=== PATIENT | female | born 1950 | race Caucasian/White ===

== ENCOUNTER 2020-02-07 14:25 | Inpatient (IN) | payer MEDICARE ==
[2020-02-07] MEDS ORDERED: DEXAMETHASONE SOD PHOSPHATE 4 MG/ML 1 ML VIAL IV STA (14:42)
[2020-02-07] MEDS ORDERED: SODIUM CHLORIDE 0.9% 1,000 ML IV ONE (14:43)
--- NOTE | 2020-02-07 14:59 | ED ---
Chest Pain HPI - General Chief Complaint: Chest Pain Stated Complaint: Covid+ SOB/chest pain Time Seen by Provider: 02/07/20 14:31 Source: EMS Mode of arrival: EMS Limitations: no limitations - History of Present Illness Initial Comments: 69-year-old female history of hypertension presenting today for chief complaint of positive Covid with increasing shortness of breath and occasional chest pain. Patient states that she has been diagnosed with Covid since Wednesday. Patient states that she has had increasing shortness of breath and occasional chest pain she states they are sharp over the anterior chest. She denies pressure jaw pain and arm pain nausea vomiting abdominal pain. Patient does endorse diarrhea. Patient states she has all over body aches hasn't had fevers she denies neck stiffness, visual changes. Patient denies leg swelling, hemoptysis. Patient denies current chest pain. patient states she felt so short of breath today that her PCP told her to call EMS and bring her family to the ER> Patient has no additional complaints, she does appear mildly tachypneic on arrival - Related Data Home Medications Medication Instructions Recorded Confirmed Albuterol Sulfate [Proair Hfa] 1 - 2 puff INHALATION RT-Q6H PRN 02/07/20 02/07/20 Ezetimibe [Zetia] 10 mg PO Q3D 02/07/20 02/07/20 Losartan Potassium 100 mg PO HS 02/07/20 02/07/20 Allergies Allergy/AdvReac Type Severity Reaction Status Date / Time diltiazem AdvReac hand and Verified 02/07/20 15:04 feet swelling Review of Systems ROS Statement: Those systems with pertinent positive or pertinent negative responses have been documented in the HPI. ROS Other: All systems not noted in ROS Statement are negative. EKG Findings - EKG Comments: EKG Findings:: Ventricular rate 99 bpm, HI interval 138 ms, QRS samaritan 82 ms, QT/QTC 364/467 ms. This is normal sinus. With some nonspecific ST changes in the lateral leads. Past Medical History Past Medical History: Hypertension Past Surgical History: No Surgical Hx Reported Past Psychological History: No Psychological Hx Reported Smoking Status: Never smoker Past Alcohol Use History: None Reported Past Drug Use History: None Reported General Exam - General Exam Comments Initial Comments: General: The patient is awake and alert Eye: Pupils are equal, round and reactive to light, extra-ocular movements are intact. No nystagmus. There is normal conjunctiva bilaterally. No signs of icterus. Ears, nose, mouth and throat: There are moist mucous membranes and no oral lesions. nasal congestion Neck: The neck is supple, there is no tenderness or JVD. Cardiovascular: There is a regular rate and rhythm. No murmur, rub or gallop is appreciated. Respiratoryrespirations are mildly -labored, breath sounds are equal. No wheezes, stridor. Rhonchi present. dry cough Gastrointestinal: Soft, non-distended, non-tender abdomen without masses or organomegaly noted. There is no rebound or guarding present. Musculoskeletal: Normal ROM, no tenderness. Strength 5/5. Sensation intact. Pulses equal bilaterally 2+. Neurological: A&O x 3. CN II-XII intact, There are no obvious motor or sensory deficits. Coordination appears grossly intact. Speech is normal. Skin: Skin is warm and dry and no rashes or lesions are noted. No calf pain no lower extremity edema Psychiatric: Cooperative, appropriate mood & affect, normal judgment. Limitations: no limitations Course Vital Signs 02/07/20 02/07/20 14:28 15:40 Temperature 100.5 F H Pulse Rate 103 H Respiratory 24 26 H Rate Blood Pressure 175/93 O2 Sat by Pulse 91 L Oximetry Chest Pain MDM - MDM 69-year-old P male presenting for shortness of breath chest pain positive covert. Patient states she has had worsening shortness of breath. She troponin negative. Dimer mildly elevated patient will be treated with Lovenox as she has increased risk of thrombotic events with covid 19 infection. Patient CXR concern for possible Covid pneumonia. As patient is mildly hypoxic and slightly tachypneic she will be admitted for continuous pulse oximetry monitoring her respiratory status, serial troponins. Patient agreeable to care plan and admission. Dr. gaspar agreeable to care plan--admission accepted by Dr. Vasquez Disposition Clinical Impression: COVID-19, Chest pain, Fever, Hypoxia Disposition: ADMITTED IP TO THIS HOSP Condition: Stable Additional Instructions: . Is patient prescribed a controlled substance at d/c from ED?: No Referrals: Mariya Enrique MD [Primary Care Provider] - 1-2 days Time of Disposition: 16:35
--- NOTE | 2020-02-07 15:06 | XR ---
EXAMINATION TYPE: XR chest 1V portable DATE OF EXAM: 02/07/2020 COMPARISON: NONE HISTORY: Shortness of breath and chest pain, Covid positive TECHNIQUE: Single frontal view of the chest is obtained. FINDINGS: Lung volumes are low. Patchy bilateral density is present within the lungs. There is no ev ident pneumothorax or pleural effusion. Heart size within normal limits accounting for technique. Aor ta is dense. IMPRESSION: Correlate for pneumonia versus atelectasis. Expiratory exam, consider follow-up PA and l ateral chest x-ray when stable. Right hemidiaphragm is elevated.
[2020-02-07 15:21] LABS: Albumin 4.2 g/dL (3.5-5.0); Calcium 9.1 mg/dL (8.4-10.2); Magnesium 2.1 mg/dL (1.6-2.3); Potassium 4.1 mmol/L (3.5-5.1); Total Bilirubin 1.3 mg/dL (0.2-1.3); Total Protein 7.5 g/dL (6.3-8.2)
[2020-02-07 15:25] LABS: INR 0.9 (<1.2); Partial Thromboplastin Time 24.3 sec (22.0-30.0); Prothrombin Time 9.9 sec (9.0-12.0)
[2020-02-07] MEDS: SODIUM CHLORIDE 0.9% 1,000 ML IV SCH (15:27)
[2020-02-07 15:33] LABS: Basophils # (A) 0.1 k/uL (0-0.2); Basophils % (A) 1 %; Eosinophils % (A) 0 %; HCT 41.4 % (34.0-46.0); HGB 14.2 gm/dL (11.4-16.0); Lymphocytes # (A) 1.3 k/uL (1.0-4.8); Lymphocytes % (A) 11 %; MCH 28.1 pg (25.0-35.0); MCHC 34.2 g/dL (31.0-37.0); Mean Platelet Volume 7.8; Monocytes # (A) 0.7 k/uL (0-1.0); Monocytes % (A) 6 %; Neutrophils # (A) 9.4 k/uL (1.3-7.7); Neutrophils % (A) 80 %; Platelet Count 267 k/uL (150-450); RBC 5.04 m/uL (3.80-5.40); RDW 12.8 % (11.5-15.5); WBC 11.7 k/uL (3.8-10.6)
[2020-02-07 15:37] LABS: D-Dimer 0.87 mg/L FEU (<0.60); MCV 82.2 fL (80.0-100.0)
[2020-02-07 15:52] LABS: C Reactive Protein 187.4 mg/L (<10.0)
[2020-02-07] MEDS ORDERED: ENOXAPARIN 80 MG/0.8 ML SYRINGE SQ STA (16:02)
[2020-02-07] MEDS ORDERED: ENOXAPARIN 60 MG/0.6 ML SYRINGE SQ STA (16:04)
[2020-02-07] MEDS ORDERED: NALOXONE 0.4 MG/ML 1 ML VIAL IV PRN (16:33)
[2020-02-07] MEDS ORDERED: Potassium Replacement Protocol 1 EACH MISC MISCELLANE PRN (19:28)
[2020-02-07] MEDS ORDERED: Magnesium Replacement Protocol 1 EACH MISC MISCELLANE PRN (19:28)
[2020-02-07] MEDS: FAMOTIDINE 20 MG TAB PO SCH (20:43)
[2020-02-07] MEDS: CHOLECALCIFEROL 1,000 UNIT TAB PO SCH (20:44)
[2020-02-07] MEDS ORDERED: LOSARTAN 50 MG TAB PO SCH (21:00)
[2020-02-07] MEDS: ALBUTEROL HFA INHALER INHALATION SCH (21:22)
--- NOTE | 2020-02-07 21:46 | HP ---
HISTORY AND PHYSICAL DATE OF SERVICE: 02/07/2020 CHIEF COMPLAINTS: Shortness of breath, cough and sputum. HISTORY OF PRESENT ILLNESS: This 69-year-old woman with a past medical history of hypertension, asthma being followed by Dr. Mariya Enrique in the outpatient setting, not feeling well over the past several days. Patient's has got dementia and multiple other medical problems has also been sick. The patient was having increased shortness of breath. The patient diagnosed with Covid since Wednesday, but the patient was significantly hypoxic and the patient came to [facility] and admitted for further evaluation and treatment. The D-dimer is elevated at 0.87. CT angio chest was recommended. Patient also had elevated inflammatory markers and 187. The chest x-ray done in the ER which was reviewed personally by me showed bilateral interstitial lesions suggestive of COVID-19 pneumonia. The patient admitted for further evaluation and treatment. There is no history any headache, loss of consciousness, seizures at this time. PAST MEDICAL HISTORY: History of hypertension, history of asthma. HOME MEDICATIONS: Albuterol, losartan, and Zetia. ALLERGIES: DILTIAZEM. FAMILY HISTORY: No history of heart disease or strokes in the family. SOCIAL HISTORY: No history of smoking. No history of alcohol. REVIEW OF SYSTEMS: ENT: No diminished vision. No diminished hearing. CARDIOVASCULAR: No angina or palpitations. RESPIRATION as mentioned earlier. GI: As mentioned. : As mentioned earlier. NERVOUS SYSTEM: No numbness, weakness ALLERGY/IMMUNOLOGY: No asthma or hayfever. MUSCULOSKELETAL as mentioned earlier. HEMATOLOGY/ONCOLOGY: No history of anemia. ENDOCRINE: No history of diabetes or hypothyroidism. CONSTITUTIONAL: As mentioned earlier. DERMATOLOGY: Negative. RHEUMATOLOGY negative. PSYCHIATRY as mentioned earlier. PHYSICAL EXAM: Patient is alert, oriented x 3. The pulse is 103. Blood pressure 175/93, respiration 24. Temperature is 100.5, pulse ox 91% on 2 L. HEENT: Conjunctivae normal. NECK: No JVD. CARDIOVASCULAR: S1, S2 muffled. RESPIRATIONS: Breath sounds diminished in the bases. A few scattered rhonchi. ABDOMEN: Soft, nontender. LEGS are no edema. No swelling. NERVOUS SYSTEM: Higher functions as mentioned. Moves all four limbs. No focal motor deficits. SKIN: No ulcer, no rashes and no bleeding. JOINTS: No active deforming arthropathy. LABS: WBC 7.2, hemoglobin 14.2. D-dimer is 0.87, and AST is 54, ALT is 39 and LDH is 1051. C-reactive protein is 187. ASSESSMENT: 1. Acute Covid-19 infection with bilateral interstitial pneumonia with acute hypoxic respiratory failure. 2. Elevated D-dimer. 3. Hypertension. 4. History of bronchial asthma. 5. Hyperlipidemia. 6. Increased AST, ALT. 7. Increased LDH. 8. Increased CRP. 9. Obesity with body mass of 30.7. 10.FULL CODE. RECOMMENDATIONS AND DISCUSSION: In this 69-year-old woman who presented with multiple complex medical issues. We will monitor the patient closely. Continue the current medications, management and symptomatic treatment. Otherwise bronchodilators. Ensure oxygenation. We will start the Lovenox, Dexamethasone and zinc. Also recommend consult Dr. Ortega for consideration of Remdesivir because of the hypoxia, early presentation, CT angio of the chest also will be ordered to rule out the possibility of acute pulmonary embolism as well as bilateral pneumonia. Prognosis extremely guarded because of multiple complex medical issues. Discussed with the patient who understands and agrees. A copy of dictation being forwarded to Dr. Mariya Enrique, who is the primary physician. MMODL / IJN: [id number] / MTDD
[2020-02-08] MEDS: ALBUTEROL HFA INHALER INHALATION SCH ×5 (00:34→20:25)
[2020-02-08 01:40] LABS: Ferritin 732.9 ng/mL (10.0-291.0)
[2020-02-08] MEDS: SODIUM CHLORIDE 0.9% 1,000 ML IV SCH ×3 (03:54→15:00)
[2020-02-08] MEDS: FAMOTIDINE 20 MG TAB PO SCH ×2 (09:47→21:15)
[2020-02-08] MEDS: ASCORBIC ACID 500 MG TAB PO SCH (09:47)
[2020-02-08] MEDS: CHOLECALCIFEROL 1,000 UNIT TAB PO SCH (09:47)
[2020-02-08] MEDS: ENOXAPARIN 40 MG/0.4 ML SYRINGE SQ SCH (09:48)
[2020-02-08] MEDS: ACETAMINOPHEN TAB 325 MG TAB PO PRN (09:48)
[2020-02-08] MEDS: dexAMETHasone 2 MG TAB PO SCH (09:48)
[2020-02-08 11:31] LABS: Basophils % (A) 0 %; Eosinophils % (A) 0 %; HCT 37.5 % (34.0-46.0); HGB 12.7 gm/dL (11.4-16.0); Lymphocytes # (A) 1.1 k/uL (1.0-4.8); Lymphocytes % (A) 11 %; MCH 27.9 pg (25.0-35.0); MCHC 33.8 g/dL (31.0-37.0); MCV 82.7 fL (80.0-100.0); Mean Platelet Volume 7.4; Monocytes # (A) 0.5 k/uL (0-1.0); Monocytes % (A) 5 %; Neutrophils # (A) 7.7 k/uL (1.3-7.7); Neutrophils % (A) 81 %; Platelet Count 256 k/uL (150-450); RBC 4.54 m/uL (3.80-5.40); RDW 12.9 % (11.5-15.5); WBC 9.5 k/uL (3.8-10.6)
[2020-02-08 11:44] LABS: ALT 33 U/L (4-34); AST 41 U/L (14-36); African American GFR (CKD) >90 (>60 ml/min/1.73 sqM); Albumin 3.5 g/dL (3.5-5.0); Alkaline Phosphatase 82 U/L (38-126); Anion Gap 8 mmol/L; Blood Urea Nitrogen 25 mg/dL (7-17); Calcium 8.6 mg/dL (8.4-10.2); Carbon Dioxide 24 mmol/L (22-30); Chloride 110 mmol/L (98-107); Glucose 110 mg/dL (74-99); Magnesium 2.3 mg/dL (1.6-2.3); Non-African American GFR(CKD) 82 (>60 ml/min/1.73 sqM); Potassium 4.2 mmol/L (3.5-5.1); Sodium 142 mmol/L (137-145); Total Bilirubin 0.8 mg/dL (0.2-1.3); Total Protein 6.5 g/dL (6.3-8.2)
[2020-02-08] MEDS ORDERED: MECLIZINE 25 MG TAB PO PRN (16:39)
[2020-02-08] MEDS: CHOLESTYRAMINE (WITH SUGAR) 4 GM PACKET PO SCH ×2 (16:42→17:25)
[2020-02-08] MEDS: LOSARTAN 50 MG TAB PO SCH (17:25)
--- NOTE | 2020-02-08 18:20 | PN ---
PROGRESS NOTE DATE OF SERVICE: 02/08/2020 This 69-year-old woman was admitted with acute COVID-19 infection with bilateral pneumonia with acute hypoxic respiratory failure. The patient is being closely monitored at this time. Infectious disease evaluation is in progress. The patient was started on IV steroids. The patient is followed by Dr. Mariya Enrique in the outpatient setting. Past medical history reviewed. REVIEW OF SYSTEMS: CARDIOVASCULAR SYSTEM: No angina, palpitations. RESPIRATORY SYSTEM: As mentioned earlier. GI: As mentioned earlier. : No dysuria or retention. NERVOUS SYSTEM: No numbness, weakness. CURRENT MEDICATIONS: Reviewed. They include Tylenol, vitamin C, Hexadrol, Zetia, Pepcid, replacement protocol. PHYSICAL EXAMINATION: Alert and oriented x3. Pulse 75 blood pressure 140/70, respiration 24, temperature 98.6, pulse ox 94% on 2 L. HEENT: Conjunctivae normal. NECK: No jugular venous distention. CARDIOVASCULAR SYSTEM: S1, S2 muffled. RESPIRATORY SYSTEM: Breath sounds diminished at the bases. Bilateral scattered rhonchi and crackles. ABDOMEN: Soft, non-tender. LEGS: No edema. No swelling. NERVOUS SYSTEM: No focal deficit. LABS: Labs are noted. Inflammatory markers are increased. ASSESSMENT: 1. Acute COVID-19 infection with bilateral interstitial pneumonia with acute hypoxic respiratory failure. 2. Elevated D-dimer. 3. Elevated procalcitonin. 4. Hypertension. 5. History of bronchial asthma. 6. Hyperlipidemia. 7. Increased AST, ALT. 8. Increased LDH. 9. Increased CRP. 10.Obesity with body mass index of 30.6. 11.FULL CODE. RECOMMENDATIONS AND DISCUSSION: I recommend to continue current medications, continue with the monitoring, symptomatic treatment. Continue with the bronchodilators. Inflammatory markers are elevated. I would await the infectious disease evaluation for consideration of remdesivir. Otherwise, continue the rest of the medications. Guarded prognosis. Further recommendations to follow. MMODL / IJN: [id number] / [facility] CENTERBarby
[2020-02-08] MEDS ORDERED: REMDESIVIR 200 MG in SODIUM CHLORIDE 0.9% 250 ML IVPB ONE (21:00)
--- NOTE | 2020-02-08 22:20 | P.CONS ---
History of Present Illness - Reason for Consult Consult date: 02/08/20 covid 19 Requesting physician: Teresa Vasquez - Chief Complaint shortness of breath and cough x 1 week - History of Present Illness Patient is a 69-year female presenting to the ER at [facility] yesterday afternoon for evaluation of increasing shortness of breath and occasional chest pain the patient symptom has been going on for about a week and the patient was tested for Covid on 02/05/2020 which came back positive patient subsequently having increasing shortness of breath on minimal exertion and occasional chest pain more of a sharp in nature over the anterior chest 4 to 5-10 and no radiation patient did have some nausea but no vomiting no abdominal pain and did have multiple loose stools with the symptom the patient presented to hospital on arrival to the ER the patient did have a fever of 100.5 F patient did have O2 sats of 91% on room air and is currently 96% on 2 L nasal cannula patient did have a elevated white count initially with no lymphopenia D- dimer was mildly elevated kidney function was normal ferritin 732 liver enzymes elevated LDH was 1051 CRP 187 glucose was also mildly elevated patient did have a chest x-ray which shows low lung volumes patchy bilateral density within the lung concern for pneumonia patient was admitted to the hospital infectious was consulted for further management. Review of Systems Positive point has been mentioned in HPI rest of the systems are negative Past Medical History Past Medical History: Hypertension History of Any Multi-Drug Resistant Organisms: None Reported Past Surgical History: No Surgical Hx Reported Additional Past Surgical History / Comment(s): LT Carotid replaced in 2006. Past Anesthesia/Blood Transfusion Reactions: No Reported Reaction Past Psychological History: No Psychological Hx Reported Smoking Status: Never smoker Past Alcohol Use History: None Reported Past Drug Use History: None Reported - Past Family History Father Family Medical History: CVA/TIA, Myocardial Infarction ([place]) Additional Family Medical History / Comment(s): Father . Mother Family Medical History: CVA/TIA, Myocardial Infarction ([place]) Additional Family Medical History / Comment(s): Mother . Medications and Allergies Home Medications Medication Instructions Recorded Confirmed Type Albuterol Sulfate [Proair Hfa] 1 - 2 puff INHALATION RT-Q6H PRN 02/07/20 02/07/20 History Ezetimibe [Zetia] 10 mg PO Q3D 02/07/20 02/07/20 History Losartan Potassium 100 mg PO HS 02/07/20 02/07/20 History Meclizine [Antivert] 25 mg PO PRN 02/08/20 History Allergies Allergy/AdvReac Type Severity Reaction Status Date / Time diltiazem AdvReac hand and Verified 02/07/20 15:04 feet swelling Physical Exam Vitals: Vital Signs Temp Pulse Resp BP Pulse Ox 02/08/20 16:00 98.6 F 72 24 140/78 02/08/20 12:00 98.3 F 74 18 152/75 02/08/20 08:55 98.3 F 78 20 152/75 95 02/08/20 03:45 98.1 F 62 20 172/82 99 02/08/20 00:00 98.0 F 67 18 138/65 98 02/07/20 20:50 98.2 F 77 18 167/76 97 Intake and Output 02/08/20 02/08/20 02/08/20 06:59 14:59 22:59 Intake Total 480 240 Output Total 400 Balance 80 240 Intake: Oral 480 240 Output: Urine 400 Other: # Voids 1 2 Weight 74 kg GENERAL DESCRIPTION: Elderly female lying in bed, no distress. No tachypnea or accessory muscle of respiration use. HEENT: Shows Pallor , no scleral icterus. Oral mucous membrane is dry. NECK: Trachea central, no thyromegaly. LUNGS: Unlabored breathing. Coarse breath sounds bilaterally. No wheeze or crackle. HEART: S1, S2, regular rate and rhythm. ABDOMEN: Soft, no tenderness , guarding or rigidity EXTREMITIES: No edema of feet. SKIN: No rash, no masses palpable. NEUROLOGICAL: The patient is awake, alert, oriented x3, mood and affect normal. Results CBC & Chem 7: 02/08/20 10:08 02/08/20 10:08 Labs: Abnormal Lab Results - Last 24 Hours (Table) 02/07/20 02/07/20 02/08/20 Range/Units 14:50 14:50 10:08 Chloride 110 H (98-107) mmol/L BUN 25 H (7-17) mg/dL Glucose 110 H (74-99) mg/dL Ferritin 732.9 H (10.0-291.0) ng/mL AST 41 H (14-36) U/L Procalcitonin 0.12 H (0.02-0.09) ng/mL Assessment and Plan Assessment: 1-patient presented to hospital with increasing shortness of breath chest pain cough in this patient who did have a evidence of bilateral interstitial infiltrate on the chest x-ray elevated inflammatory markers and a positive Covid test likely secondary acute COVID-19 pneumonia in this patient with 1 week onset of symptoms and did have hypoxemia on presentation, will qualify for remdesivir (1) Pneumonia due to COVID-19 virus Current Visit: Yes Status: Acute Code(s): U07.1 - COVID-19; J12.89 - OTHER VIRAL PNEUMONIA SNOMED Code(s): 494906431467163849 Plan: 1-patient will be started on remdesivir 200 mg day 1 followed by her milligrams daily x4 more doses 2-dexamethasone 6 mg daily along with Lovenox and zinc sulfate 3-droplet isolation and respiratory support We will follow on clinical condition and cultures to further adjust medication if needed Thank you for this consultation we will follow the patient along with you Time with Patient: Greater than 30
[2020-02-09] MEDS: ALBUTEROL HFA INHALER INHALATION SCH ×4 (03:32→19:33)
[2020-02-09] MEDS: SODIUM CHLORIDE 0.9% 1,000 ML IV SCH ×3 (06:09→20:41)
[2020-02-09] MEDS: dexAMETHasone 2 MG TAB PO SCH (08:16)
[2020-02-09] MEDS: ASCORBIC ACID 500 MG TAB PO SCH (08:16)
[2020-02-09] MEDS: CHOLECALCIFEROL 1,000 UNIT TAB PO SCH (08:16)
[2020-02-09] MEDS: CHOLESTYRAMINE (WITH SUGAR) 4 GM PACKET PO SCH ×3 (08:16→17:38)
[2020-02-09] MEDS: ENOXAPARIN 40 MG/0.4 ML SYRINGE SQ SCH (08:16)
[2020-02-09] MEDS: FAMOTIDINE 20 MG TAB PO SCH ×2 (08:16→20:41)
[2020-02-09] MEDS: EZETIMIBE 10 MG TAB PO SCH (08:17)
[2020-02-09] MEDS: ACETAMINOPHEN TAB 325 MG TAB PO PRN ×2 (08:25→17:34)
[2020-02-09 11:22] LABS: Basophils # (A) 0.1 k/uL (0-0.2); Basophils % (A) 0 %; Eosinophils % (A) 0 %; HCT 35.3 % (34.0-46.0); Lymphocytes # (A) 1.3 k/uL (1.0-4.8); Lymphocytes % (A) 9 %; MCH 28.1 pg (25.0-35.0); MCV 82.7 fL (80.0-100.0); Mean Platelet Volume 7.9; Monocytes # (A) 0.7 k/uL (0-1.0); Monocytes % (A) 5 %; Neutrophils % (A) 84 %; Platelet Count 288 k/uL (150-450); RBC 4.27 m/uL (3.80-5.40); RDW 12.9 % (11.5-15.5); WBC 14.3 k/uL (3.8-10.6)
[2020-02-09 11:29] LABS: ALT 33 U/L (4-34); AST 41 U/L (14-36); African American GFR (CKD) >90 (>60 ml/min/1.73 sqM); Albumin 3.3 g/dL (3.5-5.0); Alkaline Phosphatase 72 U/L (38-126); Anion Gap 5 mmol/L; Blood Urea Nitrogen 25 mg/dL (7-17); Calcium 8.8 mg/dL (8.4-10.2); Carbon Dioxide 25 mmol/L (22-30); Chloride 111 mmol/L (98-107); Glucose 109 mg/dL (74-99); Non-African American GFR(CKD) 83 (>60 ml/min/1.73 sqM); Potassium 3.7 mmol/L (3.5-5.1); Sodium 141 mmol/L (137-145); Total Bilirubin 0.5 mg/dL (0.2-1.3)
--- NOTE | 2020-02-09 16:41 | PN ---
PROGRESS NOTE DATE OF SERVICE: 02/09/2020 This 69-year-old woman who was admitted with acute COVID-19 pneumonia with bilateral interstitial pneumonia, acute hypoxic respiratory failure, was started on remdesivir. Cardiology and Pulmonology were also consulted. The patient also had chest pressure on admission which was heavy, like somebody sitting on the chest. Troponins are negative. Initial EKG did not show any acute abnormality except ST-T changes. Past medical history reviewed. REVIEW OF SYSTEMS: CARDIOVASCULAR SYSTEM: As mentioned earlier. RESPIRATORY SYSTEM: As mentioned earlier. GI: As mentioned earlier. : No dysuria or retention. NERVOUS SYSTEM: No numbness, weakness. CURRENT MEDICATIONS: Reviewed. They include Tylenol, Ventolin, vitamin C, vitamin D3, Questran, Hexadrol, Lovenox, Zetia, Pepcid, Cozaar, Antivert, Narcan, remdesivir. PHYSICAL EXAMINATION: Patient is alert and oriented x3. Pulse 69, blood pressure 147/70, respiration 18, temperature 98.6, pulse ox 96% on 1 L. HEENT: Conjunctivae normal. NECK: No jugular venous distention. CARDIOVASCULAR SYSTEM: S1, S2 muffled. RESPIRATORY SYSTEM: Breath sounds diminished at the bases. Scattered rhonchi and crackles. ABDOMEN: Soft, non-tender. NERVOUS SYSTEM: No focal deficit. LABS: WBC 14.3, hemoglobin 12. Sodium 141, potassium 3.7, albumin 3.3. ASSESSMENT: 1. Acute COVID-19 infection with bilateral interstitial pneumonia with acute hypoxic respiratory failure, on remdesivir. 2. Elevated D-dimer. 3. Elevated procalcitonin. 4. Hypertension. 5. History of bronchial asthma. 6. Hyperlipidemia. 7. Increased AST, ALT. 8. Increased LDH. 9. Increased CRP. 10.Obesity with a body mass index of 30.6. 11.FULL CODE. RECOMMENDATIONS AND DISCUSSION: I recommend to continue current medications, continue with the monitoring, symptomatic treatment. Otherwise at this time I would recommend continuing with the remdesivir, continue the rest of the medications. I would also recommend a CT angio of the chest and continue to monitor. Prognosis is guarded because of multiple complex medical issues. Further recommendations to follow. See the rest of the medications. MMODL / IJN: [id number] /
--- NOTE | 2020-02-09 16:49 | CT ---
EXAMINATION TYPE: CT angio chest DATE OF EXAM: 02/09/2020 COMPARISON: None HISTORY: PE CT DLP: 293.6 mGycm Automated exposure control for dose reduction was used. CONTRAST: Performed without and with IV Contrast, patient injected with 100 ml mL of Isovue 370. There are 3-D post processed images. There is coarse infiltrate in both lungs in the upper and lower lobes. Infiltrate is interstitial and airspace disease. Heart size is normal. There is no pericardial effusion. There is normal contrast opacification of the pulmonary arteries. There are no filling defects. Thoracic aorta is intact. There is no aneurysm or dissection. Ascending aorta measures 3.4 cm. There are a few paratracheal lymph nodes that measure up to 1.5 cm. There are no hilar masses. IMPRESSION: No evidence of pulmonary embolism. Mild mediastinal adenopathy probably due to inflammatory disease. Bilateral interstitial and airspace pulmonary infiltrates consistent with pneumonia.
[2020-02-09] MEDS: LOSARTAN 50 MG TAB PO SCH (17:35)
--- NOTE | 2020-02-09 19:56 | CONS ---
CONSULTATION PULMONARY/CRITICAL CARE CONSULTATION: DATE OF SERVICE: 02/09/2020 REASON FOR CONSULTATION: COVID-19 pneumonia. HISTORY OF PRESENT ILLNESS: This is a 69-year-old female who was admitted to the hospital with COVID-19 pneumonia. In fact, her brother and are all in the hospital. Apparently they all live together. She apparently has a history of hypertension and presented to the emergency room via EMS on February 06 at 1425 because of shortness of breath and chest pain. She apparently tested positive on the prior Wednesday. The patient states that she has been having increasing shortness of breath. Also chest discomfort and sharp pain when she takes a deep breath. She also had some slight temperature elevation and some chills. She complains of muscle aches and joint aches. She denies any nausea, vomiting, diarrhea or abdominal pain. She denies any genitourinary complaints. She was told by her primary care physician to call EMS to bring her into the hospital. Again, she, her and her brother, all of whom live together, all tested positive, two of whom are in the hospital. Currently she is resting comfortably. She does have nasal oxygen in place. She is about the same today as she was yesterday. HOME MEDICATIONS: Reviewed. She is on a ProAir inhaler, Zetia, losartan, potassium and some vitamins. ALLERGIES: CARDIZEM. MEDICAL HISTORY: Positive for hypertension. She denies any surgery. SOCIAL HISTORY: Negative for tobacco use, alcohol use or illicit drug use. FAMILY HISTORY: Noncontributory. Both mother and father are healthy. She has no history of underlying lung issues and she was given the albuterol inhaler by her primary care physician. REVIEW OF SYSTEMS: CONSTITUTIONAL: Fever, chills, muscle aches, joint aches, fatigue. HEENT: Negative. NEUROLOGIC: Negative. CARDIOVASCULAR: Chest pain. Chest tightness on deep breathing. PULMONARY: Shortness of breath, chest congestion, chest pain. GI: Negative. : Negative. RHEUMATOLOGIC: Negative. IMMUNOLOGIC: Negative. ENDOCRINOLOGIC: Negative. DERMATOLOGIC: Negative. PHYSICAL EXAMINATION: VITAL SIGNS: Vital signs are reviewed. Temperature is 98.6, T-max is 100.5, heart rate 69, respiratory rate 18, blood pressure 147/70, mean 95. Saturations are 98% on 2 L. GENERAL APPEARANCE: She appears mildly tachypneic. Now wearing nasal oxygen. No conversational dyspnea. No use of accessory muscles. HEENT: Examination is grossly unremarkable. NECK: Supple. Full range of motion. No adenopathy. Neck veins are flat. CARDIOVASCULAR: Examination reveals regular rhythm and rate. Heart rate 69 beats per minute. S1, S2 normal. No S3, S4 or murmur. LUNGS: Lungs reveal scattered rhonchi. No wheezes or crackles. Breath sounds equal. ABDOMEN: Soft. EXTREMITIES: Intact. No cyanosis, clubbing or edema. SKIN: Without rash. NEUROLOGIC: Neurologic examination is nonfocal. LABS/IMAGING: Reviewed. White count 14.3, hemoglobin 12, hematocrit 35.3, platelet count 288,000. Sodium 141, potassium 3.7, chloride 111, CO2 25. Anion gap is 5. BUN and creatinine were 25 and 0.75. Lactic acid 1.4. LDH 1051. Troponin was negative. C-reactive protein 187.4. Procalcitonin 0.12. Microbiology is negative. Chest x-ray shows patchy bilateral airspace disease. CURRENT MEDICATIONS: Current medications are reviewed. She is on Tylenol, albuterol inhaler, vitamin C, vitamin D3, Questran, Decadron, Lovenox, Zetia, famotidine, losartan, magnesium replacement, Antivert, Narcan, potassium protocol, remdesivir, and 0.9 at 130 mL/hour. ASSESSMENT: 1. COVID-19 pneumonitis with very mild hypoxemic respiratory failure. 2. History of hypertension. PLAN: This is a patient in my opinion who really should not have gotten remdesivir. She could be treated conservatively with vitamin C, vitamin D3, zinc and Decadron. She has very mild hypoxemic respiratory failure. No additional recommendations are made. Will continue to follow. Prognosis is guarded. MMODL / IJN: [id number] /
[2020-02-09] MEDS ORDERED: REMDESIVIR 100 MG in SODIUM CHLORIDE 0.9% 250 ML IVPB SCH (21:00)
--- NOTE | 2020-02-09 23:03 | PN ---
PROGRESS NOTE DATE OF SERVICE: 02/09/2020. REASON FOR FOLLOW UP: Acute COVID-19 pneumonia. INTERVAL HISTORY: Patient is currently afebrile. The patient is breathing comfortably today. The patient denies having any chest pain. Minimal cough. No nausea, vomiting, abdominal pain or diarrhea. PHYSICAL EXAMINATION: Her blood pressure 152/70 with a pulse of 62, temperature 99.1. She is 94% on 1 L nasal cannula. General description is an elderly female up in the bed in no distress. Respiratory system: Unlabored breathing with a few crackles at the bases. No wheeze. Heart S1, S2. Regular rate and rhythm. ABDOMEN: Soft, no tenderness. LABS: Hemoglobin is 12, white count 14.3, BUN of 25, creatinine 0.75. DIAGNOSTIC IMPRESSION AND PLAN: Patient with acute COVID-19 pneumonia in this patient who seemed to have shown clinical response to Remdesivir, Dexamethasone and Lovenox. To continue along with respiratory support and monitor clinical course closely. MMODL / IJN: [id number] /
[2020-02-10] MEDS ORDERED: amLODIPine 5 MG TAB PO SCH (00:08)
[2020-02-10] MEDS: hydrALAZINE HCL 10 MG TAB PO PRN ×4 (00:38→20:02)
[2020-02-10] MEDS: ALBUTEROL HFA INHALER INHALATION SCH ×4 (00:57→20:28)
[2020-02-10] MEDS: SODIUM CHLORIDE 0.9% 1,000 ML IV SCH ×2 (04:08→16:55)
[2020-02-10 08:25] LABS: Basophils # (A) 0.2 k/uL (0-0.2); Basophils % (A) 1 %; Eosinophils % (A) 0 %; HCT 36.9 % (34.0-46.0); HGB 12.8 gm/dL (11.4-16.0); Lymphocytes # (A) 1.7 k/uL (1.0-4.8); Lymphocytes % (A) 14 %; MCH 28.5 pg (25.0-35.0); MCHC 34.7 g/dL (31.0-37.0); MCV 82.1 fL (80.0-100.0); Mean Platelet Volume 7.9; Monocytes # (A) 0.6 k/uL (0-1.0); Monocytes % (A) 5 %; Neutrophils # (A) 9.4 k/uL (1.3-7.7); Neutrophils % (A) 78 %; Platelet Count 327 k/uL (150-450); RBC 4.49 m/uL (3.80-5.40); RDW 12.7 % (11.5-15.5); WBC 12.1 k/uL (3.8-10.6)
[2020-02-10] MEDS: ASCORBIC ACID 500 MG TAB PO SCH (08:32)
[2020-02-10] MEDS: CHOLECALCIFEROL 1,000 UNIT TAB PO SCH (08:32)
[2020-02-10] MEDS: dexAMETHasone 2 MG TAB PO SCH (08:32)
[2020-02-10] MEDS: FAMOTIDINE 20 MG TAB PO SCH ×2 (08:32→20:02)
[2020-02-10] MEDS: ACETAMINOPHEN TAB 325 MG TAB PO PRN ×2 (08:32→20:02)
[2020-02-10] MEDS: CHOLESTYRAMINE (WITH SUGAR) 4 GM PACKET PO SCH ×3 (08:33→16:55)
[2020-02-10] MEDS: ENOXAPARIN 40 MG/0.4 ML SYRINGE SQ SCH (08:33)
[2020-02-10 08:35] LABS: Albumin 3.5 g/dL (3.5-5.0); Calcium 8.9 mg/dL (8.4-10.2); Potassium 3.6 mmol/L (3.5-5.1); Total Bilirubin 0.6 mg/dL (0.2-1.3); Total Protein 6.4 g/dL (6.3-8.2)
--- NOTE | 2020-02-10 09:35 | P.CRDCN ---
History of Present Illness Consult date: 02/10/20 Requesting physician: Teresa Vasquez Reason for Consult (text): chest pain/pressure Chief complaint: shortness of breath, cough History of present illness: This a pleasant 69-year-old female patient with a past medical history of hypertension, hyperlipidemia and at one point was told she had an enlarged heart that she feels is related to her Cozaar. Presented to the emergency department via EMS on February 06 with complaints of shortness of breath, chest discomfort and diarrhea. She was mildly hypoxic. She has tested positive for COVID19. Her, her brother and her have all tested positive for the virus. Apparently her and her brother are both in the hospital. There asked to the patient consultation for chest discomfort. The patient does complain of a burning chest pain when she coughs. Labs on admission showed a white blood cell count 11.7, d-dimer 0.87, BUN 24, creatinine 0.95 (less than 0.012 and 0.016, C- reactive protein 187.4, pro-calcitonin 0.12, AST 54, ALT 39, lactate dehydrogenase 1051. Chest x-ray on admission recommended to correlate for pneumonia versus atelectasis, right hemidiaphragm is elevated. He did undergo chest CTA which showed no evidence of pulmonary embolism with mild mediastinal adenopathy probably due to inflammatory disease, bilateral interstitial and airspace pulmonary infiltrates consistent with pneumonia. 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 Vital signs show elevated blood pressure. Initially temperature was 100.5 but she has been afebrile since admission. Overall she's feeling mildly better. She is able to walk to the bathroom but continues to feel short of breath which is less than on admission. He is to complain of a burning in her chest when she coughs. Past Medical History Past Medical History: Hypertension History of Any Multi-Drug Resistant Organisms: None Reported Past Surgical History: No Surgical Hx Reported Additional Past Surgical History / Comment(s): LT Carotid replaced in 2006. Past Anesthesia/Blood Transfusion Reactions: No Reported Reaction Past Psychological History: No Psychological Hx Reported Smoking Status: Never smoker Past Alcohol Use History: None Reported Past Drug Use History: None Reported - Past Family History Father Family Medical History: CVA/TIA, Myocardial Infarction ([place]) Additional Family Medical History / Comment(s): Father . Mother Family Medical History: CVA/TIA, Myocardial Infarction ([place]) Additional Family Medical History / Comment(s): Mother . Medications and Allergies Home Medications Medication Instructions Recorded Confirmed Type Albuterol Sulfate [Proair Hfa] 1 - 2 puff INHALATION RT-Q6H PRN 02/07/20 02/07/20 History Ezetimibe [Zetia] 10 mg PO Q3D 02/07/20 02/07/20 History Losartan Potassium 100 mg PO HS 02/07/20 02/07/20 History Meclizine [Antivert] 25 mg PO PRN 02/08/20 History Allergies Allergy/AdvReac Type Severity Reaction Status Date / Time amlodipine [From [facility]] AdvReac hand and Verified 02/10/20 00:41 feet swelling diltiazem AdvReac hand and Verified 02/07/20 15:04 feet swelling Physical Exam Vitals: Vital Signs Temp Pulse Resp BP Pulse Ox 02/10/20 08:30 98 F 62 18 148/68 98 02/10/20 04:00 97.9 F 64 18 185/84 99 02/10/20 00:00 98.2 F 62 20 196/89 95 02/09/20 20:00 97.7 F 70 18 151/69 98 02/09/20 16:00 99.1 F 62 18 158/72 94 L 02/09/20 12:00 98.6 F 69 18 147/70 96 Intake and Output 02/09/20 02/10/20 02/10/20 22:59 06:59 14:59 Intake Total 780 Output Total 600 Balance 180 Intake: Oral 780 Output: Urine 600 Other: # Voids 2 # Bowel Movements 1 Weight 80.5 kg A thorough physical exam was not performed secondary to COVID-19 Results 02/10/20 07:46 02/10/20 07:46 Cardiac Enzymes 02/09/20 02/10/20 Range/Units 10:48 07:46 AST 41 H 47 H (14-36) U/L CBC 02/09/20 02/10/20 Range/Units 10:48 07:46 WBC 14.3 H 12.1 H (3.8-10.6) k/uL RBC 4.27 4.49 (3.80-5.40) m/uL Hgb 12.0 12.8 (11.4-16.0) gm/dL Hct 35.3 36.9 (34.0-46.0) % Plt Count 288 327 (150-450) k/uL Comprehensive Metabolic Panel 02/09/20 02/10/20 Range/Units 10:48 07:46 Sodium 141 142 (137-145) mmol/L Potassium 3.7 3.6 (3.5-5.1) mmol/L Chloride 111 H 109 H (98-107) mmol/L Carbon Dioxide 25 28 (22-30) mmol/L BUN 25 H 21 H (7-17) mg/dL Creatinine 0.75 0.81 (0.52-1.04) mg/dL Glucose 109 H 92 (74-99) mg/dL Calcium 8.8 8.9 (8.4-10.2) mg/dL AST 41 H 47 H (14-36) U/L ALT 33 42 H (4-34) U/L Alkaline Phosphatase 72 67 (38-126) U/L Total Protein 6.0 L 6.4 (6.3-8.2) g/dL Albumin 3.3 L 3.5 (3.5-5.0) g/dL Current Medications Generic Name Dose Route Start Last Admin Trade Name Freq PRN Reason Stop Dose Admin Acetaminophen 650 mg 02/08/20 09:36 02/10/20 08:32 Acetaminophen Tab 325 Mg Tab PO 650 mg Q6HR PRN Administration Fever and/ or Pain Albuterol Sulfate 2 puff 02/07/20 20:00 02/10/20 08:54 Albuterol Hfa Inhaler INHALATION 2 puff RT-Q6H MESHA Administration Ascorbic Acid 500 mg 02/08/20 09:00 02/10/20 08:32 Ascorbic Acid 500 Mg Tab PO 500 mg DAILY MESHA Administration Cholecalciferol 1,000 unit 02/07/20 19:30 02/10/20 08:32 Cholecalciferol 1,000 Unit Tab PO 1,000 unit DAILY MESHA Administration Cholestyramine Resin 4 gm 02/08/20 15:00 02/10/20 08:33 Cholestyramine (With Sugar) 4 Gm Packet PO 4 gm TID BETWEEN MEALS MESHA Administration Dexamethasone 6 mg 02/08/20 09:00 02/10/20 08:32 Dexamethasone 2 Mg Tab PO 6 mg DAILY MESHA Administration Ezetimibe 10 mg 02/09/20 09:00 02/09/20 08:17 Ezetimibe 10 Mg Tab PO Not Given Q3D MESHA Enoxaparin Sodium 40 mg 02/08/20 09:00 02/10/20 08:33 Enoxaparin 40 Mg/0.4 Ml Syringe SQ 40 mg DAILY MESHA Administration Famotidine 20 mg 02/07/20 21:00 02/10/20 08:32 Famotidine 20 Mg Tab PO 20 mg BID MESHA Administration Hydralazine HCl 10 mg 02/10/20 00:07 02/10/20 00:38 Hydralazine Hcl 10 Mg Tab PO 10 mg Q4H PRN Administration Blood Pressure - High Hydrochlorothiazide 25 mg 02/10/20 09:15 Hydrochlorothiazide 25 Mg Tab PO DAILY [facility] Sodium Chloride 1,000 mls @ 130 mls/hr 02/07/20 14:45 02/10/20 04:08 Saline 0.9% IV Not Given .Q7H42M MESHA Remdesivir 100 mg/ Sodium 250 mls @ 250 mls/hr 02/09/20 21:00 02/09/20 20:40 Chloride IVPB 02/12/20 21:59 250 mls/hr DAILY@2100 [facility] Administration Losartan Potassium 100 mg 02/08/20 18:00 02/09/20 17:35 Losartan 50 Mg Tab PO 100 mg DAILY@1800 [facility] Administration Meclizine HCl 25 mg 02/08/20 16:39 Meclizine 25 Mg Tab PO BID PRN dizzy Miscellaneous Information 1 each 02/07/20 19:28 Magnesium Replacement Protocol 1 Each Misc MISCELLANE DAILY PRN Per Protocol Protocol Miscellaneous Information 1 each 02/07/20 19:28 Potassium Replacement Protocol 1 Each Misc MISCELLANE DAILY PRN Per Protocol Protocol Naloxone HCl 0.2 mg 02/07/20 16:33 Naloxone 0.4 Mg/Ml 1 Ml Vial IV Q2M PRN Opioid Reversal Intake and Output 02/09/20 02/10/20 02/10/20 22:59 06:59 14:59 Intake Total 780 Output Total 600 Balance 180 Intake: Oral 780 Output: Urine 600 Other: # Voids 2 # Bowel Movements 1 Weight 80.5 kg 02/10/20 07:46 02/10/20 07:46 EKG Interpretations (text) 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 We will add hydrochlorothiazide and low dose aspirin. We will avoid calcium channel blockers due to history of edema with these. Further recommendations to follow depending on the patient's blood pressure response and echocardiogram results. The above dictated assessment and findings were discussed with signing physician. The impression and plan of care have been directed as dictated. Za Costello, Nurse Practitioner, acting as scribe for signing physician.
[2020-02-10] MEDS: hydroCHLOROthiazide 25 MG TAB PO SCH (09:42)
[2020-02-10] MEDS: ASPIRIN 81 MG PO SCH (12:40)
--- NOTE | 2020-02-10 14:20 | PN ---
PROGRESS NOTE PULMONARY/CRITICAL CARE PROGRESS NOTE: DATE OF SERVICE: February 10, 2020 This is a 69-year-old female that we saw yesterday in consultation. She was admitted with a diagnosis of COVID-19 pneumonia. In fact, both her and her brother are in the hospital as well with COVID-19 infection. She presented to the emergency room on February 06. She complained of shortness of breath and chest pain. The patient has a history of hypertension. She otherwise is relatively healthy. Today, she was complaining to the nurse and to us that she did not like the Remdesivir. She requested that it be stop. It was stopped. She denies any fever, chills. Just feels miserable in the sense of muscle aches, joint aches and just feeling overwhelming fatigue and tiredness. She still has shortness of breath. It is no worse. PHYSICAL EXAMINATION: VITAL SIGNS: Current vital signs are reviewed. Temperature 98. Heart rate 62, respiratory rate 16, blood pressure 165/74, mean 104, room air saturation 97%. GENERAL: Appears in no acute distress. No respiratory distress. HEENT: Examination is grossly unremarkable. NECK: Supple. Full range of motion. No adenopathy. Neck veins are flat. CARDIOVASCULAR: Examination reveals a regular rhythm and rate. S1, S2 normal. No S3, S4, or murmur. Heart rate 62 beats per minute. LUNGS: A few scattered rhonchi. No wheezes or crackles. Breath sounds equal. ABDOMEN: Soft. Obese. Bowel sounds are heard. EXTREMITIES are intact. No cyanosis, clubbing, or edema. SKIN: Without rash. NEUROLOGIC: Examination is nonfocal. LABS: Reviewed. White count 12.1, hemoglobin 12.8, hematocrit 36.9, platelet count is normal. Sodium 142, potassium 3.6. Chloride 109. CO2 28. Anion gap 5. BUN and creatinine were 21 and 0.81. Microbiology is currently negative. Chest CT dated February 08 shows no evidence of pulmonary embolism, mild mediastinal adenopathy, and bilateral interstitial and airspace infiltrates consistent with COVID- 19 pneumonia. CURRENT MEDICATIONS: Reviewed. The patient is on Tylenol, albuterol ascorbic acid, aspirin, vitamin D3, Questran, Decadron, Lovenox, Zetia, famotidine, hydralazine, hydrochlorothiazide, losartan, magnesium replacement, meclizine, Narcan, potassium replacement, and a saline IV. ASSESSMENT: 1. COVID-19 pneumonitis, with very mild hypoxemic respiratory failure. 2. History of hypertension. PLAN: The patient got Remdesivir, ordered by the Infectious Disease doctor. Sure enough, today she declined to take the Remdesivir anymore. She was concerned that was causing to make her feel more sick. The patient is on vitamin C, vitamin D3, zinc, and Decadron. We will continue to follow. The patient has been weaned down to no supplemental oxygen. Additional recommendations and suggestions are forthcoming. Prognosis is guarded. MMODL / IJN: [id number] /
--- NOTE | 2020-02-10 15:02 | ECHOF ---
Referral Reason:chest pain MEASUREMENTS -------- HEIGHT: 160.0 cm WEIGHT: 80.3 kg BP: 148/68 RVIDd: 3.6 cm (< 3.3) IVSd: 1.5 cm (0.6 - 1.1) LVIDd: 3.2 cm (3.9 - 5.3) LVPWd: 2.0 cm (0.6 - 1.1) IVSs: 2.3 cm LVIDs: 1.6 cm LVPWs: 2.2 cm LAESV Index (A-L): 33.72 ml/m Ao Diam: 2.5 cm (2.0 - 3.7) AV Cusp: 1.9 cm (1.5 - 2.6) MV EXCURSION: 15.640 mm (> 18.000) MV EF SLOPE: 52 mm/s (70 - 150) EPSS: 0.4 cm MV E Marco: 0.98 m/s MV DecT: 214 ms MV A Marco: 1.26 m/s MV E/A Ratio: 0.78 RAP: 15.00 mmHg RVSP: 41.92 mmHg FINDINGS -------- Sinus rhythm. This was a technically adequate study. The left ventricular size is normal. There is moderate concentric left ventricular hypertrophy. O verall left ventricular systolic function is normal with, an EF between 55 - 60 %. The diastolic fi lling pattern is normal for the age of the patient 20.86. The right ventricle is mildly enlarged. LA is midly dilated 29-33ml/m2. The right atrial size is normal. Interatrial and interventricular septum intact. The aortic valve is trileaflet and appears structurally normal. There is no evidence of aortic regu rgitation. There is no evidence of aortic stenosis. Mild mitral regurgitation is present. Mild tricuspid regurgitation present. There is moderate pulmonary hypertension. The right ventric ular systolic pressure, as measured by Doppler, is 41.92mmHg. Trace/mild (physiologic) pulmonic regurgitation. The aortic root size is normal. The inferior vena cava is dilated with poor inspiratory collapse which is consistent with estimated r ight atrial pressure of 20 mmHg. There is no pericardial effusion. CONCLUSIONS -------- 1. The left ventricular size is normal. 2. There is moderate concentric left ventricular hypertrophy. 3. Overall left ventricular systolic function is normal with, an EF between 55 - 60 %. 4. The diastolic filling pattern is normal for the age of the patient 20.86 5. The right ventricle is mildly enlarged. 6. LA is midly dilated 29-33ml/m2. 7. Mild mitral regurgitation is present. 8. Mild tricuspid regurgitation present. 9. There is moderate pulmonary hypertension. 10. The right ventricular systolic pressure, as measured by Doppler, is 41.92mmHg. 11. Trace/mild (physiologic) pulmonic regurgitation. 12. The inferior vena cava is dilated with poor inspiratory collapse which is consistent with estimat ed right atrial pressure of 20 mmHg. ROTARY DUMP OPERATOR: Reshma Henley RDCS
[2020-02-10] MEDS: ZINC SULFATE 220 MG CAP PO SCH (15:43)
[2020-02-10] MEDS: LOSARTAN 50 MG TAB PO SCH (17:18)
--- NOTE | 2020-02-10 23:05 | PN ---
PROGRESS NOTE DATE OF SERVICE: 02/10/2020 REASON FOR FOLLOWUP: COVID-19 pneumonia. INTERVAL HISTORY: Patient is currently afebrile. The patient is breathing slightly comfortably. Denies any chest pain. She did have a cough, not bringing up sputum. No nausea, no vomiting. No abdominal pain or diarrhea. PHYSICAL EXAMINATION: Blood pressure 139/81 with a pulse of 74, temperature 98.3. She is 97% on 2 L nasal cannula. General description is an elderly female lying in bed in no distress respiratory system: Unlabored breathing, decreased breath sounds in the base, with no wheeze heart S1, S2. Regular rate. ABDOMEN: Soft, no tenderness. LABS: Hemoglobin 12.8, white count 12.1, BUN of 21, creatinine 0.81. DIAGNOSTIC IMPRESSION AND PLAN: Patient with acute COVID-19 pneumonia. Patient currently responding to the Lovenox, which was discontinued yesterday. The patient is currently covered with Lasix. Lovenox next to continue and monitor clinical course closely. MMODL / IJN: [id number] /
[2020-02-11] MEDS: ALBUTEROL HFA INHALER INHALATION SCH ×4 (02:07→21:31)
[2020-02-11 08:23] LABS: ALT 69 U/L (4-34); AST 66 U/L (14-36); African American GFR (CKD) >90 (>60 ml/min/1.73 sqM); Albumin 3.7 g/dL (3.5-5.0); Alkaline Phosphatase 69 U/L (38-126); Anion Gap 7 mmol/L; Blood Urea Nitrogen 22 mg/dL (7-17); Calcium 9.1 mg/dL (8.4-10.2); Carbon Dioxide 31 mmol/L (22-30); Chloride 102 mmol/L (98-107); Glucose 113 mg/dL (74-99); Non-African American GFR(CKD) 80 (>60 ml/min/1.73 sqM); Potassium 3.4 mmol/L (3.5-5.1); Sodium 140 mmol/L (137-145); Total Bilirubin 0.9 mg/dL (0.2-1.3); Total Protein 6.6 g/dL (6.3-8.2)
[2020-02-11] MEDS: dexAMETHasone 2 MG TAB PO SCH (08:36)
[2020-02-11] MEDS: ASPIRIN 81 MG PO SCH (08:36)
[2020-02-11] MEDS: ENOXAPARIN 40 MG/0.4 ML SYRINGE SQ SCH (08:36)
[2020-02-11] MEDS: FAMOTIDINE 20 MG TAB PO SCH ×2 (08:36→20:16)
[2020-02-11] MEDS: ASCORBIC ACID 500 MG TAB PO SCH (08:36)
[2020-02-11] MEDS: CHOLECALCIFEROL 1,000 UNIT TAB PO SCH (08:36)
[2020-02-11] MEDS: ZINC SULFATE 220 MG CAP PO SCH (08:36)
[2020-02-11] MEDS: ACETAMINOPHEN TAB 325 MG TAB PO PRN ×2 (08:36→20:16)
[2020-02-11] MEDS: CHOLESTYRAMINE (WITH SUGAR) 4 GM PACKET PO SCH ×3 (08:36→15:32)
[2020-02-11] MEDS: hydroCHLOROthiazide 25 MG TAB PO SCH (08:36)
--- NOTE | 2020-02-11 11:34 | P.PN ---
Subjective Progress Note Date: 02/11/20 This a pleasant 69-year-old female patient with a past medical history of hypertension, hyperlipidemia and at one point was told she had an enlarged heart that she feels is related to her Cozaar. Presented to the emergency department via EMS on February 06 with complaints of shortness of breath, chest discomfort and diarrhea. She was mildly hypoxic. She has tested positive for COVID19. Her, her brother and her have all tested positive for the virus. Apparently her and her brother are both in the hospital. There asked to the patient consultation for chest discomfort. The patient does complain of a burning chest pain when she coughs. Labs on admission showed a white blood cell count 11.7, d-dimer 0.87, BUN 24, creatinine 0.95 (less than 0.012 and 0.016, C- reactive protein 187.4, pro-calcitonin 0.12, AST 54, ALT 39, lactate dehydrogenase 1051. Chest x-ray on admission recommended to correlate for pneumonia versus atelectasis, right hemidiaphragm is elevated. He did undergo chest CTA which showed no evidence of pulmonary embolism with mild mediastinal adenopathy probably due to inflammatory disease, bilateral interstitial and airspace pulmonary infiltrates consistent with pneumonia. 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 Vital signs show elevated blood pressure. Initially temperature was 100.5 but she has been afebrile since admission. Overall she's feeling mildly better. She is able to walk to the bathroom but continues to feel short of breath which is less than on admission. He is to complain of a burning in her chest when she coughs. 02/11/2020 She denies feeling any different since yesterday. Continues to have difficulty in breathing. Continues to have a burning in her chest when she coughs. She did undergo an echocardiogram with Doppler study that showed a normal LV systolic function with an ejection fraction of 55-60% with mild MR and mild TR and moderate pulmonary hypertension. Blood pressure is better controlled she is currently on hydrochlorothiazide 25 mg by mouth daily and losartan 100 mg by mouth daily. Also has an order for hydralazine 10 mg IV push for elevated blood pressure and was given this once around 8 PM. Labs this morning show potassium 3.4, BUN 22, creatinine 0.77. Objective - Vital Signs Vital signs: Vital Signs Temp 97.9 F 02/11/20 08:33 Pulse 59 L 02/11/20 08:33 Resp 16 02/11/20 08:33 BP 134/62 02/11/20 08:33 Pulse Ox 97 02/11/20 08:33 Intake & Output 02/10/20 02/11/20 02/11/20 18:59 06:59 18:59 Intake Total 788 540 240 Balance 788 540 240 Weight 75 kg Intake: Oral 788 540 240 Other: # Voids 1 1 - Exam Thorough exam not completed secondary to limited evaluation/examination due to COVID 19. Pt was interviewed and information obtained from medical record and nursing staff. 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 At this time there is no acute need for cardiac further cardiac workup. Continue current medications. We'll follow-up with the patient as an outpatient and determine if further cardiac workup is needed at that time once she has recovered from Covid 19 infection. The above dictated assessment and findings were discussed with signing physician. The impression and plan of care have been directed as dictated. Za Costello, Nurse Practitioner, acting as scribe for signing physician.
[2020-02-11] MEDS ORDERED: POTASSIUM CHLORIDE ER 20 MEQ TAB.ER PO STA (13:31)
--- NOTE | 2020-02-11 16:48 | PN ---
PROGRESS NOTE PULMONARY/CRITICAL CARE PROGRESS NOTE: DATE OF SERVICE: February 11, 2020 This is a 69-year-old female who was admitted on February 06. We saw her a couple days ago in consultation. She was admitted with a diagnosis of COVID-19 pneumonia. In fact, both her and her brother are currently in the hospital as well with COVID- 19 infection. They apparently were all together on . Apparently they live together. She presented to the emergency room on February 06 with complaints of shortness of breath and chest pain. She has a history of hypertension. She states that she does not really feel like she is improving. She was started on Remdesivir but refused the second dose. She states that it was causing her difficulty. The patient admits to primarily muscle aches, joint aches, feeling weak and fatigued, and shortness of breath. PHYSICAL EXAMINATION: VITAL SIGNS: Current vital signs are reviewed. Temperature is 97.9, heart rate 60, respiratory rate 16, blood pressure 126/66, mean 86, 2 L saturation 99%. Appears in no acute distress. HEENT: Examination is grossly unremarkable. Nasal O2 noted. NECK: Supple, full range of motion. No adenopathy. Neck veins are flat. CARDIOVASCULAR: Examination reveals regular rhythm and rate. Heart rate 60 beats per minute. S1, S2 normal. No S3, S4, or murmur. Heart sounds are distant. LUNGS: Reveal diffuse bilateral rhonchi. No wheezes. No crackles. Breath sounds equal. ABDOMEN: Obese, bowel sounds are heard. EXTREMITIES are intact. No edema. SKIN: Without rash. NEUROLOGIC: Examination is nonfocal. LABS: Reviewed. Sodium 140, potassium 3.4, chloride 102, CO2 31, anion gap is 7. BUN and creatinine were 22 and 0.77. Glucose 113, AST 66, ALT 69. Microbiology is currently negative. Chest CT from February 08 shows no evidence of pulmonary embolism, mild mediastinal adenopathy related to underlying inflammatory disease, and bilateral interstitial airspace infiltrates consistent with pneumonia. CURRENT MEDICATIONS: Reviewed. She is on Tylenol, albuterol, vitamin C, aspirin, vitamin D3, Questran, Decadron, Lovenox, Zetia, Pepcid, hydralazine, hydrochlorothiazide, losartan, magnesium replacement protocol, Antivert, Narcan, K-Dur and zinc. ASSESSMENT: 1. COVID-19 pneumonitis with mild hypoxemic respiratory failure. 2. Intolerant of Remdesivir. 3. History of hypertension. PLAN: The patient could not tolerate the Remdesivir. She refused it after the first dose. She is currently on Decadron, vitamin C, vitamin D3, and zinc. We will repeat a chest x-ray in the morning. No additional recommendations are made. Prognosis is guarded. The patient does not feel like she is really improving all that much. MMODL / IJN: [id number] /
[2020-02-11] MEDS: LOSARTAN 50 MG TAB PO SCH (17:37)
[2020-02-11 20:16] VITALS: TEMP 98
--- NOTE | 2020-02-11 21:00 | PN ---
PROGRESS NOTE DATE OF SERVICE: 02/11/2020 REASON FOR FOLLOWUP: COVID-19 pneumonia. INTERVAL HISTORY: The patient is currently afebrile. The patient is breathing comfortably. Complaining of feeling weak and tired, no energy. No chest pain though she did have some cough, not bringing up sputum. No nausea, vomiting or diarrhea. PHYSICAL EXAMINATION: Blood pressure 150/78 with a pulse of 66, temperature 97.9. She is 96% on 2 L nasal cannula. General description is an elderly female up in the bed in no distress. Respiratory system: Unlabored breathing with decreased breath sounds in the base, with no wheeze. Heart S1, S2. Regular rate and rhythm. Abdomen soft, no tenderness. LABS: BUN of 22, creatinine 0.77. DIAGNOSTIC IMPRESSION AND PLAN: Patient with acute COVID-19 pneumonia in this patient currently covered dexamethasone, Lovenox and zinc. She has refused Remdesivir and did not complete her treatment. Continue to monitor closely and continue supportive care. MMODL / IJN: [id number] /
--- NOTE | 2020-02-11 23:49 | P.PN ---
Subjective Progress Note Date: 02/10/20 Principal diagnosis: COVID-19 pneumonia Patient is a 69-year-old female was admitted to hospital due to acute COVID-19 pneumonia with bilateral interstitial pneumonia and acute hypoxic respiratory failure. Patient was started on remdesivir. Patient was complaining of chest pressure on admission with heaviness and pressure-like somebody sitting on the chest. 02/10/2020 Patient is currently lying in the bed appears in mild distress due to shortness of breath. Currently oxygen at 2 L oxygen via nasal cannula. CT angiogram of the chest was done yesterday showed no evidence of PE. Mild mediastinal adenopathy probably due to inflammatory disease. Bilateral social and airspace pulmonary infiltrates consistent with pneumonia. Echocardiogram showed normal EF with moderate pulmonary hypertension. Patient is being continued Lovenox and dexamethasone. Cardiology is following. Hydrochlorothiazide was added for blood pressure control. Current medications reviewed. Objective - Vital Signs Vital signs: Vital Signs Temp 98.1 F 02/10/20 15:37 Pulse 59 L 02/10/20 15:37 Resp 18 02/10/20 15:37 BP 160/74 02/10/20 15:37 Pulse Ox 98 02/10/20 15:37 Intake & Output 02/09/20 02/10/20 02/10/20 18:59 06:59 18:59 Intake Total 1260 548 Output Total 1200 Balance 60 548 Weight 80.5 kg Intake: Oral 1260 548 Output: Urine 1200 Other: # Voids 1 2 1 # Bowel Movements 1 - Exam PHYSICAL EXAMINATION: Patient is lying in the bed comfortably, no acute distress, awake alert and oriented.. HEENT: Normocephalic. Neck is supple. Pupils reactive. Nostrils clear. Oral cavity is moist. Ears reveal no drainage. Neck reveals no JVD, carotid bruits, or thyromegaly. CHEST EXAMINATION: Trachea is central. Symmetrical expansion.Bilateral diffuse coarse breath sounds. CARDIAC: Normal S1, S2 with no gallops. No murmurs ABDOMEN: Soft. Bowel sounds normal. No organomegaly. No abdominal bruits. Extremities: reveal no edema. No clubbing or cyanosis Neurologically awake, alert, oriented x3 with well-coordinated movements. No focal deficits noted Skin: No rash or skin lesions. Psychiatric: Coperative. Nonsuicidal Musculoskeletal: No joint swelling or deformity. Normal range of motion. - Labs CBC & Chem 7: 02/10/20 07:46 02/11/20 08:02 Labs: Abnormal Lab Results - Last 24 Hours (Table) 02/10/20 02/10/20 Range/Units 07:46 07:46 WBC 12.1 H (3.8-10.6) k/uL Neutrophils # 9.4 H (1.3-7.7) k/uL Chloride 109 H (98-107) mmol/L BUN 21 H (7-17) mg/dL AST 47 H (14-36) U/L ALT 42 H (4-34) U/L Assessment and Plan Assessment: Acute COVID-19 pneumonia with bilateral interstitial pneumonia and acute hypoxic respiratory failure present on admission Elevated D-dimer. CT angiogram negative for PE. Elevated pro calcitonin level Hypertension History of bronchial asthma Hyperlipidemia Elevated inflammatory markers Obesity with BMI 30.6 Patient is full code Plan: Patient will be continued on supportive therapy and symptomatic management. Can with oxygen and titrate down to room air gradually. Pulmonary and cardiology is on board. Continue current management and further recommendations based on clinical course. Time with Patient: Greater than 30
--- NOTE | 2020-02-11 23:50 | P.PN ---
Subjective Progress Note Date: 02/11/20 Principal diagnosis: COVID-19 pneumonia Patient is a 69-year-old female was admitted to hospital due to acute COVID-19 pneumonia with bilateral interstitial pneumonia and acute hypoxic respiratory failure. Patient was started on remdesivir. Patient was complaining of chest pressure on admission with heaviness and pressure-like somebody sitting on the chest. 02/10/2020 Patient is currently lying in the bed appears in mild distress due to shortness of breath. Currently oxygen at 2 L oxygen via nasal cannula. CT angiogram of the chest was done yesterday showed no evidence of PE. Mild mediastinal adenopathy probably due to inflammatory disease. Bilateral social and airspace pulmonary infiltrates consistent with pneumonia. Echocardiogram showed normal EF with moderate pulmonary hypertension. Patient is being continued Lovenox and dexamethasone. Cardiology is following. Hydrochlorothiazide was added for blood pressure control. 02/11/2020 Patient is currently lying in bed comfortably today. Breathing status is better. Patient is still oxygen at 2 L via nasal cannula. Patient also feels very anxious. Continued on Decadron and Lovenox. 2D echocardiogram showed normal EF and moderate pulmonary hypertension. Blood pressure better controlled today. Laboratory data showed BUN 2020 creatinine 0.77 and potassium 3.4 which is being replaced. Anticipate discharge in the next 24 hours with more clinical improvement. Titrate down to room air. Current medications reviewed. Objective - Vital Signs Vital signs: Vital Signs Temp 97.9 F 02/11/20 15:23 Pulse 66 02/11/20 15:26 Resp 16 02/11/20 15:26 BP 150/78 02/11/20 15:23 Pulse Ox 97 02/11/20 15:23 Intake & Output 02/10/20 02/11/20 02/11/20 18:59 06:59 18:59 Intake Total 788 540 962 Balance 788 540 962 Weight 75 kg Intake: Oral 788 540 962 Other: # Voids 1 1 - Exam PHYSICAL EXAMINATION: Patient is lying in the bed comfortably, no acute distress, awake alert and oriented.. HEENT: Normocephalic. Neck is supple. Pupils reactive. Nostrils clear. Oral cavity is moist. Ears reveal no drainage. Neck reveals no JVD, carotid bruits, or thyromegaly. CHEST EXAMINATION: Trachea is central. Symmetrical expansion.Bilateral diffuse coarse breath sounds. CARDIAC: Normal S1, S2 with no gallops. No murmurs ABDOMEN: Soft. Bowel sounds normal. No organomegaly. No abdominal bruits. Extremities: reveal no edema. No clubbing or cyanosis Neurologically awake, alert, oriented x3 with well-coordinated movements. No focal deficits noted Skin: No rash or skin lesions. Psychiatric: Coperative. Nonsuicidal Musculoskeletal: No joint swelling or deformity. Normal range of motion. - Labs CBC & Chem 7: 02/10/20 07:46 02/11/20 08:02 Labs: Abnormal Lab Results - Last 24 Hours (Table) 02/11/20 Range/Units 08:02 Potassium 3.4 L (3.5-5.1) mmol/L Carbon Dioxide 31 H (22-30) mmol/L BUN 22 H (7-17) mg/dL Glucose 113 H (74-99) mg/dL AST 66 H (14-36) U/L ALT 69 H (4-34) U/L Assessment and Plan Assessment: Acute COVID-19 pneumonia with bilateral interstitial pneumonia and acute hypoxic respiratory failure present on admission Elevated D-dimer. CT angiogram negative for PE. Elevated pro calcitonin level Hypertension History of bronchial asthma Hyperlipidemia Elevated inflammatory markers Obesity with BMI 30.6 Patient is full code Plan: Patient will be continued on supportive therapy and symptomatic management. Can with oxygen and titrate down to room air gradually. Pulmonary and cardiology is on board. Continue current management and further recommendations based on clinical course. Time with Patient: Greater than 30
[2020-02-12] MEDS: ACETAMINOPHEN TAB 325 MG TAB PO PRN (03:11)
[2020-02-12] MEDS: ALBUTEROL HFA INHALER INHALATION SCH ×3 (03:48→11:47)
[2020-02-12 03:53] VITALS: RESP 16
--- NOTE | 2020-02-12 07:19 | XR ---
EXAMINATION TYPE: XR chest 1V portable DATE OF EXAM: 02/12/2020 CLINICAL HISTORY: Difficulty breathing and covid Pneumonia progress study. TECHNIQUE: Single AP portable upright view of the chest is obtained. COMPARISON: Chest x-ray from 5 days earlier. CTA chest 3 days earlier. FINDINGS: Persistent low lung volumes and chronic parenchymal changes with bilateral faint opacities seen better on CT versus x-ray. No significant pleural effusion or pneumothorax seen bilaterally. Ca rdiac silhouette size is stable and upper limits of normal atherosclerotic thoracic aorta. Osseous st ructures are intact. IMPRESSION: Low lung volumes and chronic parenchymal changes with faint bilateral multifocal acute in filtrates. No significant change from prior studies. Findings consistent with covid 19 infection.
[2020-02-12] MEDS: EZETIMIBE 10 MG TAB PO SCH (08:54)
[2020-02-12] MEDS: ASPIRIN 81 MG PO SCH (08:55)
[2020-02-12] MEDS: CHOLECALCIFEROL 1,000 UNIT TAB PO SCH (08:55)
[2020-02-12] MEDS: hydroCHLOROthiazide 25 MG TAB PO SCH (08:55)
[2020-02-12] MEDS: ZINC SULFATE 220 MG CAP PO SCH (08:55)
[2020-02-12] MEDS: FAMOTIDINE 20 MG TAB PO SCH (08:55)
[2020-02-12] MEDS: ASCORBIC ACID 500 MG TAB PO SCH (08:55)
[2020-02-12] MEDS: dexAMETHasone 2 MG TAB PO SCH (08:55)
[2020-02-12] MEDS: ENOXAPARIN 40 MG/0.4 ML SYRINGE SQ SCH (08:55)
[2020-02-12] MEDS: CHOLESTYRAMINE (WITH SUGAR) 4 GM PACKET PO SCH ×2 (08:56→11:57)
--- NOTE | 2020-02-12 09:03 | P.PN ---
Subjective Progress Note Date: 02/12/20 69-year-old patient diagnosed having coronavirus Covid 19 pneumonia, presented to the emergency department on 02/07/2020 for shortness of breath and chest pain. The patient is known to have hypertension. The patient was treated with a combination of steroids and Remdesivir , but the patient refused further doses due to some toxicity and side effects.. The patient was having muscle aches and pains and feeling weak and fatigue and shortness of breath. She was on 2 L of oxygen by nasal cannula and she started on 2 L with a pulse is 99%. CXR today shows persistent low volumes and chronic parenchymal changes and bilateral faint opacities. No significant effusion. Objective - Vital Signs Vital signs: Vital Signs Temp 98.0 F 02/12/20 02:00 Pulse 60 02/12/20 02:00 Resp 16 02/12/20 02:00 BP 135/63 02/12/20 02:00 Pulse Ox 97 02/12/20 02:00 Intake & Output 02/11/20 02/12/20 02/12/20 18:59 06:59 18:59 Intake Total 962 Balance 962 Intake: Oral 962 Other: # Voids 1 2 - Exam Gen. appearance the patient is calm and comfortable in no acute distress Head exam was generally normal. There was no scleral icterus or corneal arcus. Mucous membranes were moist. Neck was supple and without jugular venous distension, thyromegaly, or carotid bruits. Carotids were easily palpable bilaterally. There was no adenopathy. Lungs sounds are diminished in the patient's tach in lung bases bilaterally Cardiac exam revealed the PMI to be normally situated and sized. The rhythm was regular and no extrasystoles were noted during several minutes of auscultation. The first and second heart sounds were normal and physiologic splitting of the second heart sound was noted. There were no murmurs, rubs, clicks, or gallops. Abdominal exam revealed normal bowel sounds. The abdomen was soft, non-tender, and without masses, organomegaly, or appreciable enlargement of the abdominal aorta. Examination of the extremities revealed easily palpable radial, femoral and pedal pulses. There was no cyanosis, clubbing or edema. Examination of the skin revealed no evidence of significant rashes, suspicious appearing nevi or other concerning lesions. Neurologically, the patient is awake and alert and the patient does not have any focal neurological deficit. Cranial nerves are essentially intact. - Labs CBC & Chem 7: 02/10/20 07:46 02/11/20 08:02 Assessment and Plan Plan: 1 acute Covid 19 related pneumonia with hypoxic respiratory failure currently on 2 L of oxygen by nasal cannula. The patient is intolerant to Remdesivir. 2 hypertension Plan Continue Decadron, vitamin C, vitamin D and zinc. The patient should be further weaned off the oxygen and hopefully she'll be able to maintain a saturation above 90%. She is hemodynamically stable.weaned off the patient from oxygen. Currently is on 2 L and her pulse ox of 97%. Chest x-ray findings are stable.her pulse ox on room air was checked with the order of 92%. Possible discharge later today or tomorrow.
[2020-02-12 09:25] LABS: Basophils % (A) 0 %; Eosinophils % (A) 0 %; HCT 39.3 % (34.0-46.0); HGB 13.1 gm/dL (11.4-16.0); Lymphocytes # (A) 2.2 k/uL (1.0-4.8); Lymphocytes % (A) 20 %; MCH 27.6 pg (25.0-35.0); MCHC 33.4 g/dL (31.0-37.0); MCV 82.8 fL (80.0-100.0); Mean Platelet Volume 7.6; Monocytes # (A) 0.6 k/uL (0-1.0); Monocytes % (A) 5 %; Neutrophils # (A) 8.1 k/uL (1.3-7.7); Neutrophils % (A) 73 %; Platelet Count 326 k/uL (150-450); RBC 4.75 m/uL (3.80-5.40); RDW 12.7 % (11.5-15.5); WBC 11.2 k/uL (3.8-10.6)
[2020-02-12 09:44] LABS: Calcium 9.2 mg/dL (8.4-10.2); Potassium 3.6 mmol/L (3.5-5.1)
[2020-02-12 14:20] VITALS: BP 120/74; PULSE 79
--- NOTE | 2020-02-12 14:56 | P.DS ---
Providers Date of admission: 02/07/20 16:23 Attending physician: Teresa Vasquez Consults: 02/07/20 17:54 Consult Physician Stat Consulting Provider: Melissa Ortega Consult Reason/Comments: COVID-19 Do you want consulting provider notified?: Yes 02/08/20 16:38 Consult Physician Routine Consulting Provider: Regis Jarrell Consult Reason/Comments: copd Do you want consulting provider notified?: Yes 02/09/20 11:45 Consult Physician Routine Consulting Provider: Isela Leary Consult Reason/Comments: chest pain/chest pressure Do you want consulting provider notified?: Yes Primary care physician: [facility] Course: 69-year-old patient diagnosed having coronavirus Covid 19 pneumonia, presented to the emergency department on 02/07/2020 for shortness of breath and chest pain. The patient is known to have hypertension. The patient was treated with a combination of steroids and Remdesivir , but the patient refused further doses due to some toxicity and side effects.. The patient was having muscle aches and pains and feeling weak and fatigue and shortness of breath. She was on 2 L of oxygen by nasal cannula and she started on 2 L with a pulse is 99%. CXR today shows persistent low volumes and chronic parenchymal changes and bilateral faint opacities. No significant effusion. 02/12/2020 Patient still feels a bit short of breath but not requiring any oxygen saturating well at 92% upon ambulation patient will be discharged today. Covid 19 precautions post discharge were provided to the patient. PHYSICAL EXAMINATION: GENERAL: The patient is alert and oriented x3, not in any acute distress. Well developed, well nourished. HEENT: Pupils are round and equally reacting to light. EOMI. No scleral icterus. No conjunctival pallor. Normocephalic, atraumatic. No pharyngeal erythema. No thyromegaly. CARDIOVASCULAR: S1 and S2 present. No murmurs, rubs, or gallops. PULMONARY: Chest is clear to auscultation, no wheezing or crackles. ABDOMEN: Soft, nontender, nondistended, normoactive bowel sounds. No palpable organomegaly. MUSCULOSKELETAL: No joint swelling or deformity. EXTREMITIES: No cyanosis, clubbing, or pedal edema. NEUROLOGICAL: Gross neurological examination did not reveal any focal deficits. SKIN: No rashes. Note: Because of COVID 19 isolation, some of the history and physical exam findings are indirect and obtained from nursing staff, and other physician examinations to avoid unnecessary contact with the patient. Assessment and Plan Plan: 1 acute Covid 19 related pneumonia with hypoxic respiratory failure currently off oxygen will be discharged today. The patient is intolerant to Remdesivir. 2 hypertension Patient Condition at Discharge: Stable Plan - Discharge Summary Discharge Rx Participant: No New Discharge Prescriptions: New dexAMETHasone [Hexadrol] 6 mg PO DAILY 6 Days #18 tab Famotidine [Pepcid] 20 mg PO BID 7 Days #14 tab Famotidine [Pepcid] 20 mg PO BID #20 tablet Albuterol Inhaler [Ventolin Hfa Inhaler] 2 puff INHALATION RT-QID PRN #1 inh aler PRN Reason: Shortness Of Breath Or Wheezing Continue Losartan Potassium 100 mg PO HS Ezetimibe [Zetia] 10 mg PO Q3D Albuterol Sulfate [Proair Hfa] 1 - 2 puff INHALATION RT-Q6H PRN PRN Reason: Shortness Of Breath Meclizine [Antivert] 25 mg PO PRN PRN Reason: dizzy Discharge Medication List Albuterol Sulfate [Proair Hfa] 1 - 2 puff INHALATION RT-Q6H PRN 02/07/20 [History] Ezetimibe [Zetia] 10 mg PO Q3D 02/07/20 [History] Losartan Potassium 100 mg PO HS 02/07/20 [History] Meclizine [Antivert] 25 mg PO PRN 02/08/20 [History] Famotidine [Pepcid] 20 mg PO BID 7 Days #14 tab 02/11/20 [Rx] dexAMETHasone [Hexadrol] 6 mg PO DAILY 6 Days #18 tab 02/11/20 [Rx] Albuterol Inhaler [Ventolin Hfa Inhaler] 2 puff INHALATION RT-QID PRN #1 inhaler 02/12/20 [Rx] Famotidine [Pepcid] 20 mg PO BID #20 tablet 02/12/20 [Rx] Follow up Appointment(s)/Referral(s): Mariya Enrique MD [Primary Care Provider] - 02/14/20 8:30 am (Clair BLAIR at 8:30 am 02/14/2020) [facility], [NON-STAFF] - Robby Barahona MD [STAFF PHYSICIAN] - 1 Week (office will call to make follow up) Patient Instructions/Handouts: Viral Pneumonia (DC), Hypertension (DC) Activity/Diet/Wound Care/Special Instructions: . Discharge Disposition: HOME SELF-CARE
[2020-02-13] MEDS ORDERED: FAMOTIDINE 20 MG TAB PO SCH (09:00)
== END 2020-02-12 15:27 | disposition home or self-care (01) | DRG 177 ==
LOC: EC 14:25 → 3SCARD 16:23
PROVIDERS: ADMIT Hospitalist; ATTEND Hospitalist
PROC: XW033E5 Introduction of Remdesivir Anti-infective into Peripheral Vein, Percutaneous Approach, New Technology Group 5 (ICD-10-PCS; principal; 2020-02-08)
DX: U07.1 COVID-19 (principal); J96.01 Acute respiratory failure with hypoxia; J12.89 Other viral pneumonia; I27.20 Pulmonary hypertension, unspecified; I10 Essential (primary) hypertension; E78.5 Hyperlipidemia, unspecified; E66.9 Obesity, unspecified; R19.7 Diarrhea, unspecified; R94.31 Abnormal electrocardiogram [ECG] [EKG]; J45.909 Unspecified asthma, uncomplicated; I08.1 Rheumatic disorders of both mitral and tricuspid valves; I25.2 Old myocardial infarction; Z68.30 Body mass index [BMI] 30.0-30.9, adult; Z79.899 Other long term (current) drug therapy; Z88.8 Allergy status to other drugs, medicaments and biological substances; Z82.49 Family history of ischemic heart disease and other diseases of the circulatory system; Z82.3 Family history of stroke
CPT/HCPCS: 36415; 71045; 71275; 80048; 80053; 82728; 83605; 83615; 83735; 84145; 84484; 85025; 85379; 85610; 85730; 86140; 93005; 93306; 94640; 96361; 96372; 96374; 99285

== ENCOUNTER 2021-10-19 20:49 | Emergency (ER) | payer MEDICARE ==
[2021-10-19 21:28] VITALS: BP 217/90; PULSE 90; RESP 18; TEMP 101.3
[2021-10-19] MEDS ORDERED: IBUPROFEN 400 MG TAB PO STA (21:28)
--- NOTE | 2021-10-19 21:49 | ED ---
URI HPI - General Chief Complaint: Upper Respiratory Infection Stated Complaint: Fever,Sore throat Time Seen by Provider: 10/19/21 21:27 Source: patient, RN notes reviewed Mode of arrival: ambulatory Limitations: no limitations - History of Present Illness Initial Comments: This is a pleasant 71-year-old female who started having the blow symptoms on Wednesday. Patient complaining of body aches and a fever as well. Patient has been taking ibuprofen and acetaminophen. Patient states that she feels "sick," patient has history of asthma was worried that it might be getting in her lungs. Patient has inhalers at home and just started those today. No headache, no changes in vision or hearing, no difficulty with speech, no neck pain, no chest pain or shortness of breath, no abdominal pain, no nausea or vomiting, no changes in urination or bowel movements, no numbness or tingling, no extremity pain, no skin rashes or lesions. Past medical, surgical, social, and family history reviewed. MD Complaint: fever, cough, sore throat, rhinorrhea, nasal congestion - Related Data Home Medications Medication Instructions Recorded Confirmed Albuterol Sulfate [Proair Hfa] 1 - 2 puff INHALATION RT-Q6H PRN 02/07/20 02/07/20 Ezetimibe [Zetia] 10 mg PO Q3D 02/07/20 02/07/20 Losartan Potassium 100 mg PO HS 02/07/20 02/07/20 Meclizine [Antivert] 25 mg PO PRN 02/08/20 Previous Rx's Medication Instructions Recorded Famotidine [Pepcid] 20 mg PO BID 7 Days #14 tab 02/11/20 dexAMETHasone ORAL [Hexadrol] 6 mg PO DAILY 6 Days #18 tab 02/11/20 Albuterol Inhaler [Ventolin Hfa 2 puff INHALATION RT-QID PRN #1 02/12/20 Inhaler] inhaler Famotidine [Pepcid] 20 mg PO BID #20 tablet 02/12/20 Albuterol Inhaler [Ventolin Hfa 2 puff INHALATION Q4HR PRN #1 each 10/19/21 Inhaler] Nirmatrelvir/Ritonavir [Paxlovid 1 each PO BID #10 tab 10/19/21 150-100 mg Pack (Eua)] predniSONE [Deltasone] 40 mg PO DAILY #10 tab 10/19/21 Allergies Allergy/AdvReac Type Severity Reaction Status Date / Time Penicillins Allergy Anaphylaxis Verified 10/19/21 21:28 Sulfa (Sulfonamide Allergy Anaphylaxis Verified 10/19/21 21:28 Antibiotics) amlodipine [From [facility]] AdvReac hand and Verified 02/10/20 00:41 feet swelling diltiazem AdvReac hand and Verified 02/07/20 15:04 feet swelling Review of Systems ROS Statement: Those systems with pertinent positive or pertinent negative responses have been documented in the HPI. ROS Other: All systems not noted in ROS Statement are negative. Past Medical History Past Medical History: Hypertension History of Any Multi-Drug Resistant Organisms: None Reported Past Surgical History: No Surgical Hx Reported Additional Past Surgical History / Comment(s): LT Carotid replaced in 2006. Past Anesthesia/Blood Transfusion Reactions: No Reported Reaction Past Psychological History: No Psychological Hx Reported Smoking Status: Never smoker Past Alcohol Use History: None Reported Past Drug Use History: None Reported - Past Family History Father Family Medical History: CVA/TIA, Myocardial Infarction ([place]) Additional Family Medical History / Comment(s): Father . Mother Family Medical History: CVA/TIA, Myocardial Infarction ([place]) Additional Family Medical History / Comment(s): Mother . General Exam - General Exam Comments Initial Comments: Appears very mildly ill but nontoxic. Noted to be hypertensive in triage. Cranial nerves II through XII grossly intact. Capillary refill less than 2 seconds. No mottling. Appears to be adequately perfused. Moist mucous membranes Limitations: no limitations General appearance: alert, in no apparent distress Head exam: Present: atraumatic, normocephalic, normal inspection Eye exam: Present: normal appearance, PERRL, EOMI. Absent: scleral icterus, c onjunctival injection, periorbital swelling ENT exam: Present: normal exam, normal oropharynx, mucous membranes moist. Absent: mucous membranes dry Neck exam: Present: normal inspection, full ROM. Absent: tenderness, meningismus, lymphadenopathy Respiratory exam: Present: normal lung sounds bilaterally. Absent: respiratory distress, wheezes, rales, rhonchi, stridor, chest wall tenderness, accessory muscle use, decreased breath sounds, prolonged expiratory Cardiovascular Exam: Present: regular rate, normal rhythm, normal heart sounds. Absent: systolic murmur, diastolic murmur, rubs, gallop, clicks GI/Abdominal exam: Present: soft, normal bowel sounds. Absent: distended, tenderness, guarding, rebound, rigid Extremities exam: Present: normal inspection, full ROM, normal capillary refill. Absent: tenderness, pedal edema, joint swelling, calf tenderness Back exam: Present: normal inspection Neurological exam: Present: alert, oriented X3, CN II-XII intact Psychiatric exam: Present: normal affect, normal mood Skin exam: Present: warm, dry, intact, normal color. Absent: rash Course Vital Signs 10/19/21 21:23 Temperature 101.3 F H Pulse Rate 90 Respiratory 18 Rate Blood Pressure 217/90 O2 Sat by Pulse 97 Oximetry Medical Decision Making - Medical Decision Making No headache, no fever or chills, no changes in vision or hearing, no sore throat or difficulty with speech, no neck pain, no chest pain or shortness of breath, no abdominal pain, no nausea or vomiting, no changes in urination or bowel movements, no numbness or tingling, no extremity pain, no skin rashes or lesions. Past medical, surgical, social, and family history reviewed. I did discuss pros wrist cons of antiviral therapy for COVID-19 with the patient. Patient elects to have the Paxlovid prescription. Patient has no history of renal disease. Patient's chest x-ray shows no evidence of secondary pneumonia. Patient was told to return to the ER for any signs or symptoms worsen. Told to return immediately if any other problems arise. All questions answered. Treatment plan discussed. Patient in agreement Every effort has been made to ensure accuracy of this dictation. However, due t o the limitations of electronic medical records and dictation devices, errors in charting still occur. Discharge in no acute distress. I did discuss the patient's blood pressure with the patient. Patient was told to follow-up with her regular physician regarding this. She was told to call by phone tomorrow. I also treated the patient with a 5 day course of prednisone. Patient can use her home inhalers. Supervising physician Dr. Hobson - Lab Data Lab Results 10/19/21 Range/Units 21:33 Coronavirus (PCR) Detected A (Not Detectd) - Radiology Data Radiology results: pending (Evidence of acute pathology as read by me. No infiltrate. No pneumothorax. No osseous lesion. No cardiomegaly. No effusion.), image reviewed Disposition Clinical Impression: COVID-19, Hypertension, poor control Disposition: HOME SELF-CARE Condition: Good Instructions (If sedation given, give patient instructions): COVID-19 (Coronavirus Disease 2019) (ED) Additional Instructions: SELF QUARANTINE DISCHARGE: As you are at risk for symptoms due to coronavirus, please stay home and stay away from others as much as possible. Please maintain social distance of 6 feet if possible. You should not return to work until at least 3 days (72 hours) have passed since recovery of symptoms. This defined as resolution of fever without the use of fever reducing medicines and improvement in respiratory symptoms (e.g,, cough, shortness of breath) Isolation can end at least 5 days after symptom onset and after fever ends for 24 hours (without the use of fever-reducing medication) and symptoms are improving, if these people can continue to properly wear a well-fitted mask around others for 5 more days after the 5-day isolation period. If you're still having symptoms at the end of 5 day period, isolate for an additional 5 days. More information about what to do if you are sick can be found on the CDC website at https://www.cdc.gov/coronavi stanley/2019-ncov/xi-tkh-okh-sick/uekvc-gcto-xtky.html Expect the symptoms to last for 7-14 days from onset. Use acetaminophen (Tylenol) as needed for discomfort. You can take a maximum of 1 gram every 6 hours for discomfort, with your total dose in 24 hours not exceeding 4 grams. Be sure to maintain hydration. Drink continuous water and/or items high in vitamin C, such as orange juice and/or lemonade. For a cough you may take Mucinex or Robitussin. Also consider the use of Vicks Vapor Rub or your chest when you sleep. Use a humidifier that is cleaned frequently, in the bedroom at night. For Nausea /Vomiting/Diarrhea associated with your Illness: o Small frequent sips of room temperature liquids. o Diet: [place] Foods - If you are still experiencing discomfort and/or na usea please slowly advancing your diet using the BRAT Diet = bananas, rice, apples/apple sauce, toast. o With diarrhea avoid any dairy for 48 hours after symptoms resolved. o Continue with activity as tolerated. If your symptoms do get worse and you believe that the upper respiratory infection has developed into something else, such as pneumonia or severe dehydration, please return to the emergency department or follow-up with your primary care. But expect to be symptomatic for the days as indicated above Make sure you follow-up with your regular physician regarding blood pressure monitoring. Follow-up with your regular physician as directed. Return to the ER immediately if any symptoms worsen, new symptoms arise, or any other problems develop. Prescriptions: predniSONE [Deltasone] 40 mg PO DAILY #10 tab Nirmatrelvir/Ritonavir [Paxlovid 150-100 mg Pack (Eua)] 1 each PO BID #10 tab Albuterol Inhaler [Ventolin Hfa Inhaler] 2 puff INHALATION Q4HR PRN #1 each PRN Reason: Wheezing Is patient prescribed a controlled substance at d/c from ED?: No Referrals: Mariya Enrique MD [Primary Care Provider] - 1-2 days (Follow-up by phone) Time of Disposition: 22:13
--- NOTE | 2021-10-19 22:06 | XR ---
EXAMINATION TYPE: XR chest 2V DATE OF EXAM: 10/19/2021 9:46 PM COMPARISON: Chest x-ray 02/12/2020 TECHNIQUE: XR chest 2V . CLINICAL INDICATION:Female, 71 years old with history of cough; FINDINGS: Lungs/Pleura: Low lung volumes are present. There is no evidence of pleural effusion, focal consolida tion, or pneumothorax. Pulmonary vascularity: Unremarkable. Heart/mediastinum: Cardiomediastinal silhouette is unremarkable. Atherosclerotic calcifications are seen in the aorta. Musculoskeletal: No acute osseous pathology. IMPRESSION: No acute cardiopulmonary disease/process.
[2021-10-19] MEDS ORDERED: predniSONE 20 MG TAB PO STA (22:09)
== END 2021-10-19 22:48 | disposition home or self-care (01) ==
LOC: EC 20:49
DX: U07.1 COVID-19 (principal); I10 Essential (primary) hypertension; Z86.73 Personal history of transient ischemic attack (TIA), and cerebral infarction without residual deficits; Z82.49 Family history of ischemic heart disease and other diseases of the circulatory system; Z88.2 Allergy status to sulfonamides; Z88.8 Allergy status to other drugs, medicaments and biological substances; Z88.0 Allergy status to penicillin
CPT/HCPCS: 87635; 71046; 99284; J7512

== ENCOUNTER 2023-03-10 12:23 | Observation (INO) | payer MEDICARE ==
--- NOTE | 2023-03-10 12:45 | ED ---
General Adult HPI - General Chief complaint: Chest Pain Stated complaint: Chest Pain Time Seen by Provider: 03/10/23 12:35 Source: patient, RN notes reviewed, old records reviewed Mode of arrival: ambulatory Limitations: no limitations - History of Present Illness Initial comments: This is a 72-year-old female who presents emergency Department complaining that she woke up this morning was having some left-sided chest pain that she states is related to some achiness down her left arm and some tingling in both her left and right arm. Patient states she also was having cold sweats when this occurred. Patient states it only occurred for about 2 minutes but then it's come back multiple times since then. Patient states she does have high blood pressure and high cholesterol and a strong family history of heart disease. Patient states currently she is still having some chest pain and she's also noted that the left side of her chest is tender to palpation but is not the same tenderness that she felt earlier. Patient denies any recent fever chills or cough. Patient denies any abdominal pain patient denies nausea vomiting diarrhea. - Related Data Home Medications Medication Instructions Recorded Confirmed Ezetimibe [Zetia] 10 mg PO HS 02/07/20 03/10/23 Losartan Potassium 100 mg PO HS 02/07/20 03/10/23 Allergies Allergy/AdvReac Type Severity Reaction Status Date / Time Penicillins Allergy Anaphylaxis Verified 03/10/23 16:14 Sulfa (Sulfonamide Allergy Anaphylaxis Verified 03/10/23 16:14 Antibiotics) amlodipine [From Norvasc] AdvReac hand and Verified 03/10/23 16:14 feet swelling diltiazem AdvReac hand and Verified 03/10/23 16:14 feet swelling Review of Systems ROS Statement: Those systems with pertinent positive or pertinent negative responses have been documented in the HPI. ROS Other: All systems not noted in ROS Statement are negative. Past Medical History Past Medical History: Hypertension History of Any Multi-Drug Resistant Organisms: None Reported Past Surgical History: No Surgical Hx Reported Additional Past Surgical History / Comment(s): LT Carotid replaced in 2006. Past Anesthesia/Blood Transfusion Reactions: No Reported Reaction Past Psychological History: No Psychological Hx Reported Smoking Status: Never smoker Past Alcohol Use History: None Reported Past Drug Use History: None Reported - Past Family History Father Family Medical History: CVA/TIA, Myocardial Infarction ([place]) Additional Family Medical History / Comment(s): Father . Mother Family Medical History: CVA/TIA, Myocardial Infarction ([place]) Additional Family Medical History / Comment(s): Mother . General Exam - General Exam Comments Initial Comments: GENERAL: Patient is well-developed and well-nourished. Patient is nontoxic and well- hydrated and is in mild distress. ENT: Neck is soft and supple. No significant lymphadenopathy is noted. Oropharynx is clear. Moist mucous membranes. Neck has full range of motion without eliciting any pain. There is no thyroid enlargement and no masses were felt. EYES: The sclera were anicteric and conjunctiva were pink and moist. Extraocular movements were intact and pupils were equal round and reactive to light. Eyelids were unremarkable. PULMONARY: Unlabored respirations. Good breath sounds bilaterally. No audible rales rhonchi or wheezing was noted. CARDIOVASCULAR: There is a regular rate and rhythm without any murmurs gallops or rubs. The le ft side of the chest has pain with palpation which she states is not the same pain she expressed earlier ABDOMEN: Soft and nontender with normal bowel sounds. SKIN: Skin is clear with no lesions or rashes and otherwise unremarkable. NEUROLOGIC: Patient is alert and oriented x3. Cranial nerves II through XII are grossly intact. Motor and sensory are also intact. Normal speech, volume and content. Symmetrical smile. MUSCULOSKELETAL: Normal extremities with adequate strength and full range of motion. LYMPHATICS: No significant lymphadenopathy is noted PSYCHIATRIC: Normal psychiatric evaluation. Limitations: no limitations Course Vital Signs 03/10/23 12:26 Temperature 98.0 F Pulse Rate 81 Respiratory 16 Rate Blood Pressure 211/100 O2 Sat by Pulse 98 Oximetry Medical Decision Making - Medical Decision Making EKG is interpreted by myself EKG shows a sinus rhythm at 72 bpm NM interval is 161 QRSs 80 QT interval 390 QTC is 413. Patient's EKG shows no ST segment elevation or depression. Was pt. sent in by a medical professional or institution (, PA, PRODUCTION PLANNER, urgent care, hospital, or senior living...) When possible be specific @ -No Did you speak to anyone other than the patient for history (EMS, parent, family, police, friend...)? What history was obtained from this source @ -No Did you review nursing and triage notes (agree or disagree)? Why? @ -I reviewed and agree with nursing and triage notes Were old charts reviewed (outside hosp., previous admission, EMS record, old EKG, old radiological studies, urgent care reports/EKG's, senior living records)? Report findings @ -I reviewed prior charts in prior laboratory this patient Differential Diagnosis (chest pain, altered mental status, abdominal pain women, abdominal pain men, vaginal bleeding, weakness, fever, dyspnea, syncope, headache, dizziness, GI bleed, back pain, seizure, CVA, palpatations, mental health, musculoskeletal)? @ -Differential Chest Pain: Stable Angina, Unstable Angina, STEMI, NSTEMI Aortic Dissection, Pneumothorax, Musculoskeletal, Esophageal Spasm GERD, Cholecystitis, Pancreatitis, Zoster, this is not meant to be an all-inclusive list. EKG interpreted by me (3pts min.). @ -As above X-rays interpreted by me (1pt min.). @ -Chest x-ray showed no acute abnormality. CT interpreted by me (1pt min.). @ -Chest showed no acute abnormalities no PE U/S interpreted by me (1pt. min.). @ -None done What testing was considered but not performed or refused? (CT, X-rays, U/S, labs)? Why? @ -None What meds were considered but not given or refused? Why? @ -None Did you discuss the management of the patient with other professionals (professionals i.e. , PA, PRODUCTION PLANNER, lab, RT, psych nurse, social work professor, e commerce retailer, teacher, restoration officer, nurse case management)? Give summary @ -I spoke with Dr. Cohen and he agreed to admit the patient Was smoking cessation discussed for >3mins.? @ -No Was critical care preformed (if so, how long)? @ -No Were there social determinants of health that impacted care today? How? (Homelessness, low income, unemployed, alcoholism, drug addiction, transpor tation, low edu. Level, literacy, decrease access to med. care, fdc, rehab)? @ -No Was there de-escalation of care discussed even if they declined (Discuss DNR or withdrawal of care, Hospice)? DNR status @ -No What co-morbidities impacted this encounter? (DM, HTN, Smoking, COPD, CAD, Cancer, CVA, ARF, Chemo, Hep., AIDS, mental health diagnosis, sleep apnea, morbid obesity)? @ -None Was patient admitted / discharged? Hospital course, mention meds given and route, prescriptions, significant lab abnormalities, going to OR and other pertinent info. @ -Patient's CAT scan's lab work were all within normal range however because of her significant risk factors and her clinical picture patient will be admitted overnight and cardiology will be consulted I will admit to Dr. Cohen Undiagnosed new problem with uncertain prognosis? @ -No Drug Therapy requiring intensive monitoring for toxicity (Heparin, Nitro, Insulin, Cardizem)? @ -No Were any procedures done? @ -No Diagnosis/symptom? @ -Chest pain Acute, or Chronic, or Acute on Chronic? @ -Acute Uncomplicated (without systemic symptoms) or Complicated (systemic symptoms)? @ -Complicated Side effects of treatment? @ -No Exacerbation, Progression, or Severe Exacerbation? @ -No Poses a threat to life or bodily function? How? (Chest pain, [place], [place], pneumonia, PE, COPD, DKA, ARF, appy, cholecystitis, CVA, Diverticulitis, Homicidal, Suicidal, threat to staff... and all critical care pts) @ -Yes this can lead to an [place] and end organ dysfunction - Lab Data Result diagrams: 03/10/23 12:34 03/10/23 12:34 Lab Results 03/10/23 03/10/23 03/10/23 Range/Units 12:34 12:34 12:34 WBC 7.7 (3.8-10.6) k/uL RBC 4.74 (3.80-5.40) m/uL Hgb 13.8 (11.4-16.0) gm/dL Hct 39.2 (34.0-46.0) % MCV 82.7 (80.0-100.0) fL MCH 29.2 (25.0-35.0) pg MCHC 35.3 (31.0-37.0) g/dL RDW 13.2 (11.5-15.5) % Plt Count 233 (150-450) k/uL MPV 7.5 Neutrophils % 59 % Lymphocytes % 31 % Monocytes % 5 % Eosinophils % 2 % Basophils % 0 % Neutrophils # 4.5 (1.3-7.7) k/uL Lymphocytes # 2.4 (1.0-4.8) k/uL Monocytes # 0.4 (0-1.0) k/uL Eosinophils # 0.2 (0-0.7) k/uL Basophils # 0.0 (0-0.2) k/uL PT 10.4 (10.0-12.5) sec INR 0.9 (<1.2) APTT 24.7 (22.0-30.0) sec D-Dimer 0.87 H (<0.60) mg/L FEU Sodium 142 (137-145) mmol/L Potassium 4.1 (3.5-5.1) mmol/L Chloride 108 H (98-107) mmol/L Carbon Dioxide 24 (22-30) mmol/L Anion Gap 10 mmol/L BUN 17 (7-17) mg/dL Creatinine 0.97 (0.52-1.04) mg/dL Est GFR (CKD-EPI)AfAm 69 (>60 ml/min/1.73 sqM) Est GFR (CKD-EPI)NonAf 60 (>60 ml/min/1.73 sqM) Glucose 86 (74-99) mg/dL Calcium 9.6 (8.4-10.2) mg/dL Magnesium 2.0 (1.6-2.3) mg/dL Total Bilirubin 0.7 (0.2-1.3) mg/dL AST 41 H (14-36) U/L ALT 43 H (4-34) U/L Alkaline Phosphatase 81 (38-126) U/L Troponin I (0.000-0.034) ng/mL Total Protein 7.6 (6.3-8.2) g/dL Albumin 4.4 (3.5-5.0) g/dL 03/10/23 Range/Units 12:34 WBC (3.8-10.6) k/uL RBC (3.80-5.40) m/uL Hgb (11.4-16.0) gm/dL Hct (34.0-46.0) % MCV (80.0-100.0) fL MCH (25.0-35.0) pg MCHC (31.0-37.0) g/dL RDW (11.5-15.5) % Plt Count (150-450) k/uL MPV Neutrophils % % Lymphocytes % % Monocytes % % Eosinophils % % Basophils % % Neutrophils # (1.3-7.7) k/uL Lymphocytes # (1.0-4.8) k/uL Monocytes # (0-1.0) k/uL Eosinophils # (0-0.7) k/uL Basophils # (0-0.2) k/uL PT (10.0-12.5) sec INR (<1.2) APTT (22.0-30.0) sec D-Dimer (<0.60) mg/L FEU Sodium (137-145) mmol/L Potassium (3.5-5.1) mmol/L Chloride (98-107) mmol/L Carbon Dioxide (22-30) mmol/L Anion Gap mmol/L BUN (7-17) mg/dL Creatinine (0.52-1.04) mg/dL Est GFR (CKD-EPI)AfAm (>60 ml/min/1.73 sqM) Est GFR (CKD-EPI)NonAf (>60 ml/min/1.73 sqM) Glucose (74-99) mg/dL Calcium (8.4-10.2) mg/dL Magnesium (1.6-2.3) mg/dL Total Bilirubin (0.2-1.3) mg/dL AST (14-36) U/L ALT (4-34) U/L Alkaline Phosphatase (38-126) U/L Troponin I <0.012 (0.000-0.034) ng/mL Total Protein (6.3-8.2) g/dL Albumin (3.5-5.0) g/dL Disposition Clinical Impression: Chest pain Disposition: ADMITTED IP TO THIS HOSP Referrals: Mariya Enrique MD [Primary Care Provider] - 1-2 days Time of Disposition: 16:44
[2023-03-10 13:04] LABS: Basophils % (A) 0 %; Eosinophils # (A) 0.2 k/uL (0-0.7); Eosinophils % (A) 2 %; HCT 39.2 % (34.0-46.0); HGB 13.8 gm/dL (11.4-16.0); Lymphocytes # (A) 2.4 k/uL (1.0-4.8); Lymphocytes % (A) 31 %; MCH 29.2 pg (25.0-35.0); MCHC 35.3 g/dL (31.0-37.0); MCV 82.7 fL (80.0-100.0); Mean Platelet Volume 7.5; Monocytes # (A) 0.4 k/uL (0-1.0); Monocytes % (A) 5 %; Neutrophils # (A) 4.5 k/uL (1.3-7.7); Neutrophils % (A) 59 %; Platelet Count 233 k/uL (150-450); RBC 4.74 m/uL (3.80-5.40); RDW 13.2 % (11.5-15.5); WBC 7.7 k/uL (3.8-10.6)
[2023-03-10 13:19] LABS: INR 0.9 (<1.2); Partial Thromboplastin Time 24.7 sec (22.0-30.0); Prothrombin Time 10.4 sec (10.0-12.5)
[2023-03-10 13:22] LABS: ALT 43 U/L (4-34); AST 41 U/L (14-36); African American GFR (CKD) 69 (>60 ml/min/1.73 sqM); Albumin 4.4 g/dL (3.5-5.0); Alkaline Phosphatase 81 U/L (38-126); Anion Gap 10 mmol/L; Blood Urea Nitrogen 17 mg/dL (7-17); Calcium 9.6 mg/dL (8.4-10.2); Carbon Dioxide 24 mmol/L (22-30); Chloride 108 mmol/L (98-107); Glucose 86 mg/dL (74-99); Non-African American GFR(CKD) 60 (>60 ml/min/1.73 sqM); Potassium 4.1 mmol/L (3.5-5.1); Sodium 142 mmol/L (137-145); Total Bilirubin 0.7 mg/dL (0.2-1.3); Total Protein 7.6 g/dL (6.3-8.2)
--- NOTE | 2023-03-10 13:42 | XR ---
EXAMINATION TYPE: XR chest 2V DATE OF EXAM: 03/10/2023 COMPARISON: 10/19/2021 INDICATION: Chest pain TECHNIQUE: Frontal and lateral views of the chest are obtained. FINDINGS: The heart size is normal. The pulmonary vasculature is normal. The lungs are clear. IMPRESSION: 1. No acute pulmonary process.
--- NOTE | 2023-03-10 15:49 | CT ---
EXAMINATION TYPE: CT chest angio for PE DATE OF EXAM: 03/10/2023 COMPARISON: CTA chest February 09, 2020 HISTORY: pain, elevated d dimer CT DLP: 319.8 mGycm. Automated Exposure Control for Dose Reduction was Utilized. CONTRAST: CTA scan of the thorax is performed with IV Contrast, patient injected with 80ml mL of Isovue 300, pu lmonary embolism protocol. MIP Images are created on CT scanner and reviewed. FINDINGS: LUNGS: The lungs are grossly clear, there is no concerning parenchymal mass or nodule identified. T here is no pleural effusion or pneumothorax seen. The tracheobronchial tree is patent. MEDIASTINUM: Less than ideal bolus but no convincing CT evidence for acute pulmonary embolism. There are no greater than 1 cm hilar or mediastinal lymph nodes. No cardiomegaly or pericardial effusion is seen. OTHER: Visualized liver is low dense suggesting fatty infiltrative hepatocellular disease. IMPRESSION: No CT evidence for acute pulmonary embolism. No suspicious acute pulmonary process.
[2023-03-10] MEDS ORDERED: NITROGLYCERIN SL TABS 0.4 MG TAB SUBLINGUAL PRN (16:45)
[2023-03-10] MEDS: NITROGLYCERIN OINT 1 INCH/GM PACKET TOPICAL SCH (17:18)
[2023-03-10] MEDS: hydrALAZINE HCL 20 MG/ML 1 ML VIAL IVP STA (19:30)
[2023-03-10] MEDS: SODIUM CHLORIDE 0.9% 500 ML 500 ML IV ONE (20:57)
[2023-03-11] MEDS: ACETAMINOPHEN TAB 500 MG TAB PO PRN (06:31)
[2023-03-11] MEDS: ASPIRIN 81 MG PO SCH (08:05)
[2023-03-11] MEDS: LOSARTAN 50 MG TAB PO SCH (08:05)
[2023-03-11] MEDS: EZETIMIBE 10 MG TAB PO SCH (08:06)
[2023-03-11] MEDS: EZETIMIBE 10 MG TAB PO STA (08:30)
[2023-03-11] MEDS: LOSARTAN 50 MG TAB PO STA (08:30)
[2023-03-11] MEDS ORDERED: MECLIZINE 12.5 MG TAB PO PRN (09:00)
[2023-03-11] MEDS ORDERED: ASPIRIN 325 MG TAB PO SCH (09:00)
--- NOTE | 2023-03-11 09:32 | P.CRDCN ---
History of Present Illness History of present illness: HISTORY OF PRESENT ILLNESS: This is a 72-year-old female with a past medical history significant for hypertension and hyperlipidemia. 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 We have been asked to see the patient in consultation for chest pain. Patient examined at the bedside. Patient states yesterday around 5:00 in the morning she was awoken from sleep secondary to chest pain. She states it felt like a stabbing sensation in the middle of her chest. She states the pain lasted for a few minutes and then went away. She does report having numbness and her left arm at the time. She came to the hospital for further evaluation. She states that she has had these chest pains occurring on and off since coming to the hospital. At the time of examination she denies any chest pain or pressure. She denies any shortness of breath. She denies any nausea or vomiting. She states she has not had pain like this in the past. Patient was found to have extremely elevated blood pressures with a systolic around 200 upon admission. Blood pressure this morning has improved. Patient states she checks her blood pressure at home and her systolic usually runs [id number]. She is a nonsmoker. She reports a family history of coronary artery disease and states her dad in his 50s from a heart attack and her mom and her 70s. She reports having a stress test many years ago which was normal to her knowledge. She denies ever having a cardiac catheterization. * EKG reveals sinus mechanism with no signs of acute ischemia * Chest xray negative for acute process * Chest CTA: Negative for pulmonary embolism * Laboratory data: Troponin negative 3 * Current home cardiac medications include losartan 100 mg at night and Wednesday at 10 mg at night * Most recent echocardiogram obtained in February 2020 revealed ejection fraction 55-60%, mild MR, mild TR, moderate pulmonary hypertension * Cardiac catheterization history: Patient denies REVIEW OF SYSTEMS: At the time of my exam: CONSTITUTIONAL: Denies fever or chills. HEENT: Denies blurred vision, vision changes, or eye pain. Denies hemoptysis CARDIOVASCULAR: Denies chest pain. Denies orthopnea. Denies PND. Denies palpitations RESPIRATORY: Denies shortness of breath. GASTROINTESTINAL: Denies abdominal pain. Denies nausea or vomiting. HEMATOLOGIC: Denies bleeding disorders. GENITOURINARY: Denies any blood in urine. SKIN: Denies pruitis. Denies rash. PHYSICAL EXAM: VITAL SIGNS: Reviewed. GENERAL: Well-developed in no acute distress. HEENT: Head is normocephalic. Pupils are equal, round. Sclerae anicteric. Mucous membranes of the mouth are moist. Neck supple. No JVD or thyromegaly LUNGS: Respirations even and unlabored. Lungs essentially clear to auscultation bilaterally. HEART: Regular rate and rhythm. S1 and S2 heard. ABDOMEN: Soft. Nondistended. Nontender. EXTREMITIES: Normal range of motion. No clubbing or cyanosis. Peripheral puls es intact. No lower extremity edema NEUROLOGIC: Awake and alert. Oriented x 3. ASSESSMENT: Chest pain, troponins negative 3 Hypertension, uncontrolled on admission Hyperlipidemia History of left carotid endarterectomy, 2006 Family history of CAD PLAN: An acute coronary event has been ruled out Obtain 2-D echo to assess cardiac structure and function Resume home cardiac medications. Continue to monitor blood pressure Add hydrochlorothiazide 12.5 mg daily Add metoprolol succinate 12.5 mg daily Patient to undergo stress echocardiogram today Further recommendations pending patient's course Nurse practitioner note has been reviewed by physician. Signing provider agrees with the documented findings, assessment, and plan of care. Past Medical History Past Medical History: Hypertension History of Any Multi-Drug Resistant Organisms: None Reported Past Surgical History: No Surgical Hx Reported Additional Past Surgical History / Comment(s): LT Carotid replaced in 2006. Past Anesthesia/Blood Transfusion Reactions: No Reported Reaction Past Psychological History: No Psychological Hx Reported Smoking Status: Never smoker Past Alcohol Use History: None Reported Past Drug Use History: None Reported - Past Family History Father Family Medical History: CVA/TIA, Myocardial Infarction ([place]) Additional Family Medical History / Comment(s): Father . Mother Family Medical History: CVA/TIA, Myocardial Infarction ([place]) Additional Family Medical History / Comment(s): Mother . Medications and Allergies Home Medications Medication Instructions Recorded Confirmed Type Ezetimibe [Zetia] 10 mg PO HS 02/07/20 03/10/23 History Losartan Potassium 100 mg PO HS 02/07/20 03/10/23 History Allergies Allergy/AdvReac Type Severity Reaction Status Date / Time Penicillins Allergy Anaphylaxis Verified 03/10/23 16:14 Sulfa (Sulfonamide Allergy Anaphylaxis Verified 03/10/23 16:14 Antibiotics) amlodipine [From Norvas] AdvReac hand and Verified 03/10/23 16:14 feet swelling diltiazem AdvReac hand and Verified 03/10/23 16:14 feet swelling Physical Exam Vitals: Vital Signs Temp Pulse Pulse Resp BP BP Pulse Ox 03/11/23 07:45 98.1 F 74 18 166/78 95 03/11/23 06:34 73 18 172/85 95 03/11/23 04:00 88 18 166/75 94 L 03/11/23 00:00 84 18 156/80 94 L 03/10/23 21:28 85 16 169/78 95 03/10/23 20:31 75 18 137/66 94 L 03/10/23 19:28 73 18 208/107 96 03/10/23 17:08 65 16 222/100 96 03/10/23 12:26 98.0 F 81 16 211/100 98 Results 03/10/23 12:34 03/10/23 12:34 Cardiac Enzymes 03/10/23 03/10/23 03/10/23 Range/Units 12:34 12:34 16:56 AST 41 H (14-36) U/L Troponin I <0.012 <0.012 (0.000-0.034) ng/mL 03/10/23 Range/Units 19:42 AST (14-36) U/L Troponin I <0.012 (0.000-0.034) ng/mL Coagulation 03/10/23 Range/Units 12:34 PT 10.4 (10.0-12.5) sec APTT 24.7 (22.0-30.0) sec CBC 03/10/23 Range/Units 12:34 WBC 7.7 (3.8-10.6) k/uL RBC 4.74 (3.80-5.40) m/uL Hgb 13.8 (11.4-16.0) gm/dL Hct 39.2 (34.0-46.0) % Plt Count 233 (150-450) k/uL Comprehensive Metabolic Panel 03/10/23 Range/Units 12:34 Sodium 142 (137-145) mmol/L Potassium 4.1 (3.5-5.1) mmol/L Chloride 108 H (98-107) mmol/L Carbon Dioxide 24 (22-30) mmol/L BUN 17 (7-17) mg/dL Creatinine 0.97 (0.52-1.04) mg/dL Glucose 86 (74-99) mg/dL Calcium 9.6 (8.4-10.2) mg/dL AST 41 H (14-36) U/L ALT 43 H (4-34) U/L Alkaline Phosphatase 81 (38-126) U/L Total Protein 7.6 (6.3-8.2) g/dL Albumin 4.4 (3.5-5.0) g/dL Current Medications Generic Name Dose Route Start Last Admin Trade Name Freq PRN Reason Stop Dose Admin Acetaminophen 500 mg 03/11/23 04:34 03/11/23 06:31 Acetaminophen Tab 500 Mg Tab PO 500 mg Q6HR PRN Administration Fever and/ or Pain Aspirin 81 mg 03/11/23 09:00 03/11/23 08:05 Aspirin 81 Mg PO 81 mg DAILY MESHA Administration Ezetimibe 10 mg 03/11/23 21:00 Ezetimibe 10 Mg Tab PO HS MESHA Losartan Potassium 100 mg 03/11/23 21:00 Losartan 50 Mg Tab PO HS MESHA Meclizine HCl 12.5 mg 03/11/23 09:00 Meclizine 12.5 Mg Tab PO BID PRN Vertigo Nitroglycerin 0.4 mg 03/10/23 16:45 Nitroglycerin Sl Tabs 0.4 Mg Tab SUBLINGUAL Q5M PRN Chest Pain 03/10/23 12:34 03/10/23 12:34
--- NOTE | 2023-03-11 09:32 | CA ---
Transthoracic Echo Report Name: Federica Tomlin Age: 72 Gender: F : 1950 Exam Date: 03/11/2023 08:44 Exam Location: [place] [facility] Ht (in): 62 Wt (lb): 165 Ordering Physician: Chasity Díaz Attending/Referring Phys: [id number], Arjun Truckload Owner Operator Reshma Henley RDCS Procedure CPT: Indications: LV function Cardiac Hx: Technical Quality: Fair Contrast 1: Total Dose (mL): Contrast 2: Total Dose (mL): MEASUREMENTS (Male / Female) Normal Values 2D ECHO LV Diastolic Diameter PLAX 2.7 cm 4.2 - 5.9 / 3.9 - 5.3 cm LV Systolic Diameter PLAX 1.4 cm IVS Diastolic Thickness 2.0 cm 0.6 - 1.0 / 0.6 - 0.9 cm LVPW Diastolic Thickness 1.6 cm 0.6 - 1.0 / 0.6 - 0.9 cm LV Relative Wall Thickness 1.3 RV Internal Dim ED PLAX 4.1 cm LVOT Diameter 1.8 cm LA Volume 49.4 cm??? 18 - 58 / 22 - 52 cm??? LA Volume Index 26.9 cm???/m??? 16 - 28 cm???/m??? M-MODE Aortic Root Diameter MM 3.0 cm LA Systolic Diameter MM 4.6 cm LA Ao Ratio MM 1.5 AV Cusp Separation MM 2.0 cm DOPPLER AV Peak Velocity 149.2 cm/s AV Peak Gradient 8.9 mmHg AV Mean Velocity 101.2 cm/s AV Mean Gradient 4.5 mmHg AV Velocity Time Integral 30.0 cm LVOT Peak Velocity 95.8 cm/s LVOT Peak Gradient 3.7 mmHg LVOT Velocity Time Integral 23.9 cm LVOT Stroke Volume 61.7 cm??? LVOT Stroke Volume Index 35.0 ml/m??? LVOT Cardiac Index 2955.0 cm???/min???m??? AV Area Cont Eq vti 2.1 cm??? AV Area Cont Eq pk 1.7 cm??? MV Area PHT 2.3 cm??? Mitral E Point Velocity 60.5 cm/s Mitral A Point Velocity 122.5 cm/s Mitral E to A Ratio 0.5 MV Deceleration Time 334.0 ms MV E' Velocity 3.7 cm/s Mitral E to MV E' Ratio 16.4 TR Peak Velocity 263.7 cm/s TR Peak Gradient 27.8 mmHg Right Ventricular Systolic Press 31.9 mmHg FINDINGS Left Ventricle Severely increased left ventricular wall thickness. Left ventricular cavity size normal. Normal left ventricular systolic function with no obvious regional wall motion abnormalities. Left ventricular ejection fraction is estimated at 55-60 %. Right Ventricle Mild right ventricular dilatation. Right ventricular systolic pressure within normal limits. Right Atrium Normal right atrial size. Left Atrium Normal left atrial size. Mitral Valve Structurally normal mitral valve. Mild mitral regurgitation. Aortic Valve Trileaflet aortic valve. Thickened aortic valve without stenosis. No aortic regurgitation. Tricuspid Valve Structurally normal tricuspid valve. Mild tricuspid regurgitation. Pulmonic Valve Structurally normal pulmonic valve. Pericardium No pericardial effusion. Aorta Normal size aortic root and proximal ascending aorta. CONCLUSIONS Normal LV size and systolic function. No wall motion abnormalities. Mild right ventricular enlargement. Mild mitral and tricuspid regurgitation. No pulmonary hypertension. No pericardial effusion Previewed by: Dr. Isac Nieto MD (Electronically Signed) Final Date: 11 March 2023 09:31
[2023-03-11] MEDS: hydroCHLOROthiazide 12.5 MG CAP PO SCH (09:36)
[2023-03-11 11:30] LABS: Chol/HDL Ratio 4.18 Ratio; LDL Cholesterol,Calculated 102.7 mg/dL (0.0-131.0)
--- NOTE | 2023-03-11 11:40 | CA ---
Stress Echo Report Federica Tomlin Age: 72 Gender: F : 1950 Exam Date: 03/11/2023 11:02 Exam Location: [place] [facility] Ht (in): 62 Wt (lb): 165 Ordering Physician: Chasity Díaz Referring Physician: AGUILAR, Jumpbasting Canvas Baster: KALIA, Technologist Procedure CPT: Indication: Chest Pain ICD-9 Codes: Rhythm: Patient History: Chest pain, hypertension and family history of heart disease Cardiac Medications: Medications in past 24 hours: Contrast: Stress Results Protocol: Ahsan Total dose(mL): Exercise Duration (min:sec): 6:[address] Depression (mm): Angina Score: Coelho Score: METS: 7.9 Resting HR: 69 Resting BP: 163 / 88 Peak HR: 136 Peak BP: 209 / 91 Max Predicted HR: 150 91 % Max Predicted HR Target HR: 128 Double Product: [id number] Stress Summary: BP Response: Reason for Termination: Reached target heart rate or work-load Cardiac Symptoms: No symptoms ECG Analysis Resting ECG: Stress ECG: Arrhythmia: Echo Analysis Resting Echo: Peak Echo Analysis: MEASUREMENTS (Male/Female) Normal Values CONCLUSIONS Baseline EKG revealed a normal sinus rhythm with minor nonspecific ST abnormality. Patient walked on a standard Ahsan protocol for a total duration of 6 minutes 42 seconds. Her peak heart rate was more than 85%. She did not have any angina there was no arrhythmia. Resting heart rate was 69 bpm. Peak heart rate was 139 bpm. Resting blood pressure was 163/88. Peak blood pressure was 209/91. At peak exercise there was inferolateral ST segment depression without subjective symptoms of angina. This is a positive stress test but given the fact she has LVH this is a false-positive finding. No anginal symptoms were reported Baseline echo images revealed normal wall motion wall thickening of all segments. At peak exercise there was good augmentation of left ventricle wall motion wall thickening of all segments suggesting that there is no evidence of any stress-induced ischemia on this study. Final impression: Fair exercise capacity with a positive stress test by EKG criteria but this is a false-positive finding. No anginal symptoms no arrhythmia. LVH on resting EKG. Normal stress echocardiogram without evidence of ischemia Dr. Isac Nieto MD (Electronically Signed) Final Date: 11 March 2023 11:39
[2023-03-11 14:13] VITALS: BMI 30.2
[2023-03-11] MEDS: diphenhydrAMINE 25 MG CAP PO STA (15:04)
[2023-03-11 15:23] VITALS: BP 165/79; PULSE 87; RESP 20; TEMP 98
--- NOTE | 2023-03-11 15:51 | P.HPIM ---
History of Present Illness H&P Date: 03/11/23 This is a very pleasant 72-year-old female who presented to the emergency department with chest pain. Patient reports she was in a sleep and it woke her up abruptly with sharp stabbing chest pains that she reports as directly over her heart that lasted over 2 minutes and then started having numbness and tingling that was radiating down her left arm and tingling in bilateral hands. Patient follows with Dr. Enrique in the outpatient setting with a past medical history of hypertension. Patient denies illicit drug use or alcohol and was never a smoker. Labs were within normal limits other than a d-dimer that was mildly elevated at 0.87 and patient did have CTA in the ER showing no evidence o f acute pulmonary embolism. Troponins 3 were negative, EKG was sinus rhythm with a heart rate of 72 bpm, chest x-ray showed no acute pulmonary process, and 2-D echo was done showing severely increased left ventricular wall thickness with normal LV systolic function with no obvious regional wall motion abnormalities and EF is approximated at 55-60% she also has some mild mitral and tricuspid regurgitation with no pericardial effusion noted. Patient was admitted under observation for cardiology evaluation for chest pain. Review Of Systems: Constitutional: No fever, no chills, no night sweats. No weight change. No weakness, fatigue or lethargy. No daytime sleepiness. EENT: No headache. No blurred vision or double vision, no loss of vision. No loss of Hearing, no ringing in the ears, no dizziness. No nasal drainage or congestion. No epistaxis. No sore throat. Lungs: No shortness of breath, cough, no sputum production. No wheezing. Cardiovascular: Reports of chest pain that has resolved, no lower extremity edema. No palpitations. No paroxysmal nocturnal dyspnea. No orthopnea. No lightheadedness or dizziness. No syncopal episodes. Abdominal: No abdominal pain. No nausea, vomiting. No diarrhea. No constipation. No bloody or tarry stools.. No loss of appetite. Genitourinary: No dysuria, increased frequency, urgency. No urinary retention. Musculoskeletal: No myalgias. No muscle weakness, no gait dysfunction, no frequent falls. No back pain. No neck pain. Integumentary: No wounds, no lesions. No rash or pruritus. No unusual bruising. No change in hair or nails. Neurologic: No aphasia. No facial droop. No change in mentation. No head injury. No headache. No paralysis. No paresthesia. Psychiatric: No depression. No anxiety. No mood swings. Endocrine: No abnormal blood sugars. No weight change. No excessive sweating or thirst. No cold intolerance. PHYSICAL EXAMINATION: GENERAL: The patient is alert and oriented x4, Well developed, well nourished. Obese HEENT: Pupils are round and equally reacting to light. EOMI. no scleral icterus. No conjunctival pallor. Normocephalic, atraumatic. No pharyngeal erythema. No thyromegaly. CARDIOVASCULAR: S1 and S2 muffled PULMONARY: diminished breath sounds bilaterally otherwise clear to auscultation with no wheezing or rhonchi noted. ABDOMEN: soft. Nontender on exam. obese. non-distended, normoactive bowel sounds. No palpable organomegaly. MUSCULOSKELETAL: No joint swelling or deformity. EXTREMITIES: No cyanosis, clubbing, or pedal edema. NEUROLOGICAL: Gross neurological examination did not reveal any focal deficits. SKIN: No rashes. Assessment: Chest pain, ruled out ACS, troponins 3 were negative History of hypertension Elevated d-dimer, CTA negative for PE Hypertriglyceridemia Obesity with a BMI of 30.2 GI prophylaxis DVT prophylaxis Full code Plan: Recommend to continue with current medications and management with cardiology following. Plan is for stress testing today and if negative patient may be discharged home later Adjustments to medications being made including adding hydrochlorothiazide although patient started developing a mild irritation on the skin and feels that it is this and has been recommended to hold this and continue with losartan and close outpatient follow-up with cardiology Dietitian consulted to discuss heart healthy diet All medications reviewed and resumed as appropriate If stress testing is negative patient will be discharged today The impression and plan of care has been dictated by Melania Ash nurse practitioner as directed. Dr. Marjorie MD I have performed a history and examination and MDM of this patient, discussed the same with the dictator, and agree with the dictator's assessment and plan as written ,documented as a scribe. Based on total visit time, I have performed more than 50% of the visit. Any additional findings or plans will be noted. Past Medical History Past Medical History: Hypertension History of Any Multi-Drug Resistant Organisms: None Reported Past Surgical History: No Surgical Hx Reported Additional Past Surgical History / Comment(s): LT Carotid replaced in 2006. Past Anesthesia/Blood Transfusion Reactions: No Reported Reaction Past Psychological History: No Psychological Hx Reported Smoking Status: Never smoker Past Alcohol Use History: None Reported Past Drug Use History: None Reported - Past Family History Father Family Medical History: CVA/TIA, Myocardial Infarction ([place]) Additional Family Medical History / Comment(s): Father . Mother Family Medical History: CVA/TIA, Myocardial Infarction ([place]) Additional Family Medical History / Comment(s): Mother . Medications and Allergies Home Medications Medication Instructions Recorded Confirmed Type Ezetimibe [Zetia] 10 mg PO HS 02/07/20 03/10/23 History Losartan Potassium 100 mg PO HS 02/07/20 03/10/23 History Acetaminophen Tab [Tylenol] 500 mg PO Q6HR PRN tab 03/11/23 Rx Aspirin 81 mg PO DAILY #30 tab 03/11/23 Rx Metoprolol Succinate (ER) [Toprol 12.5 mg PO DAILY 30 Days #30 tab 03/11/23 Rx XL] Nitroglycerin Sl Tabs [Nitrostat] 0.4 mg SUBLINGUAL Q5M PRN #20 tab 03/11/23 Rx Allergies Allergy/AdvReac Type Severity Reaction Status Date / Time Penicillins Allergy Anaphylaxis Verified 03/10/23 16:14 Sulfa (Sulfonamide Allergy Anaphylaxis Verified 03/10/23 16:14 Antibiotics) amlodipine [From Norvas] AdvReac hand and Verified 03/10/23 16:14 feet swelling diltiazem AdvReac hand and Verified 03/10/23 16:14 feet swelling hydrochlorothiazide AdvReac Rash/Hives Verified 03/11/23 15:12 Physical Exam Vitals: Vital Signs Temp Pulse Pulse Resp BP BP Pulse Ox 03/11/23 07:45 98.1 F 74 18 166/78 95 03/11/23 06:34 73 18 172/85 95 03/11/23 04:00 88 18 166/75 94 L 03/11/23 00:00 84 18 156/80 94 L 03/10/23 21:28 85 16 169/78 95 03/10/23 20:31 75 18 137/66 94 L 03/10/23 19:28 73 18 208/107 96 03/10/23 17:08 65 16 222/100 96 03/10/23 12:26 98.0 F 81 16 211/100 98 Results CBC & Chem 7: 03/10/23 12:34 03/10/23 12:34 Labs: Abnormal Lab Results - Last 24 Hours (Table) 03/10/23 03/10/23 Range/Units 12:34 12:34 D-Dimer 0.87 H (<0.60) mg/L FEU Chloride 108 H (98-107) mmol/L AST 41 H (14-36) U/L ALT 43 H (4-34) U/L Assessment and Plan Time with Patient: Greater than 30
[2023-03-11] MEDS ORDERED: EZETIMIBE 10 MG TAB PO SCH (21:00)
[2023-03-11] MEDS ORDERED: LOSARTAN 50 MG TAB PO SCH (21:00)
[2023-03-12] MEDS ORDERED: METOPROLOL SUCCINATE (ER) 25 MG TAB.ER.24H PO SCH (09:00)
--- NOTE | 2023-03-14 10:04 | P.DS ---
Providers Date of admission: 03/10/23 16:45 Expected date of discharge: 03/11/23 Attending physician: Jesus Cohen Consults: 03/10/23 16:45 Consult Physician Urgent Consulting Provider: [facility] Consult Reason/Comments: Chest pain Do you want consulting provider notified?: Yes Primary care physician: Mariya Nixon Hospital Course: Final diagnosis Chest pain, ruled out ACS, troponins 3 were negative. stress testing was negative History of hypertension Elevated d-dimer, CTA negative for PE Hypertriglyceridemia Obesity with a BMI of 30.2 GI prophylaxis DVT prophylaxis Full code Discharge disposition Patient is being discharged in a stable condition with guarded prognosis to home. Patient will follow-up with Dr. nixon in the outpatient setting upon discharge. Patient is to continue with current medications as prescribed and close outpatient follow-up with cardiology as scheduled. Total time taken is greater than 35 minutes. Hospital course This is a 72-year-old female who was recently admitted with an episode of chest pain that woke her up in the middle of her sleep. Patient has had troponins 3 that were negative and underwent stress testing with cardiology and was documented as a false positive and echo was within normal limits. Patient started on some other blood pressure medications recommending outpatient follow- up. Patient was started on hydrochlorothiazide although felt like she started having some itching and would like to hold this medication for now. Will follow up with cardiology and discuss other medications for blood pressure. Patient has been cleared for discharge home today. Please refer to cardiology consultations notes for further HPI. Currently no reports of chest pain, shortness of breath, or palpitations. Patient is afebrile. No reports of nausea or vomiting and patient is tolerating diet. Patient will be discharged home today. Physical exam: Gen: This is a 72-year-old female who is awake, alert and oriented 3, well- developed, well-nourished, obese HEENT: Head is atraumatic, normocephalic. Pupils equal, round. Sclerae is anicteric. NECK: Supple. No JVD. No lymphadenopathy. No thyromegaly. LUNGS: Clear to auscultation. No wheezes or rhonchi. No intercostal retractions. HEART: Regular rate and rhythm. No murmur. ABDOMEN: Soft. obese. Bowel sounds are present. No masses. No tenderness. EXTREMITIES: No pedal edema. No calf tenderness. NEUROLOGICAL: Patient is awake, alert and oriented x3. Cranial nerves 2 through 12 are grossly intact. Please refer to medication reconciliation sheet for a list of medications. The impression and plan of care has been dictated by Melania Ash, Nurse Practitioner as directed. Dr. Marjorie MD I have performed a history and examination and MDM of this patient, discussed the same with the dictator, and agree with the dictator's assessment and plan as written ,documented as a scribe. Based on total visit time, I have performed more than 50% of the visit. Plan - Discharge Summary Discharge Rx Participant: No New Discharge Prescriptions: New Aspirin 81 mg PO DAILY #30 tab Metoprolol Succinate (ER) [Toprol XL] 12.5 mg PO DAILY 30 Days #30 tab Acetaminophen Tab [Tylenol] 500 mg PO Q6HR PRN tab PRN Reason: Fever And/ Or Pain Nitroglycerin Sl Tabs [Nitrostat] 0.4 mg SUBLINGUAL Q5M PRN #20 tab PRN Reason: Chest Pain Continue Losartan Potassium 100 mg PO HS Ezetimibe [Zetia] 10 mg PO HS Discharge Medication List Ezetimibe [Zetia] 10 mg PO HS 02/07/20 [History] Losartan Potassium 100 mg PO HS 02/07/20 [History] Acetaminophen Tab [Tylenol] 500 mg PO Q6HR PRN tab 03/11/23 [Rx] Aspirin 81 mg PO DAILY #30 tab 03/11/23 [Rx] Metoprolol Succinate (ER) [Toprol XL] 12.5 mg PO DAILY 30 Days #30 tab 03/11/23 [Rx] Nitroglycerin Sl Tabs [Nitrostat] 0.4 mg SUBLINGUAL Q5M PRN #20 tab 03/11/23 [Rx] Follow up Appointment(s)/Referral(s): Isac Nieto MD [STAFF PHYSICIAN] - 1 Week (Office will call with appointment time and date.) Mariya Nixon MD [Primary Care Provider] - 1-2 days Patient Instructions/Handouts: Low Fat Diet (DC), Heart Healthy Diet (DC) Activity/Diet/Wound Care/Special Instructions: Activity Limited until follow-up Follow-up with primary care provider on discharge Follow-up with cardiology outpatient in 1-2 weeks Continue taking medications as prescribed Continue to monitor blood pressure and keep a diary of all readings Discharge Disposition: HOME SELF-CARE
== END 2023-03-11 15:20 | disposition home or self-care (01) ==
LOC: EC 12:23 → 6NMEDSUR 16:45
PROVIDERS: ADMIT Internal Medicine; ATTEND Internal Medicine
DX: R07.89 Other chest pain (principal); I10 Essential (primary) hypertension; E78.1 Pure hyperglyceridemia; E66.9 Obesity, unspecified; R79.1 Abnormal coagulation profile; I08.1 Rheumatic disorders of both mitral and tricuspid valves; Z86.73 Personal history of transient ischemic attack (TIA), and cerebral infarction without residual deficits; Z68.30 Body mass index [BMI] 30.0-30.9, adult; Z79.82 Long term (current) use of aspirin; Z79.899 Other long term (current) drug therapy; Z88.0 Allergy status to penicillin; Z88.2 Allergy status to sulfonamides; Z88.8 Allergy status to other drugs, medicaments and biological substances; E78.5 Hyperlipidemia, unspecified; Z82.49 Family history of ischemic heart disease and other diseases of the circulatory system; F17.200 Nicotine dependence, unspecified, uncomplicated
CPT/HCPCS: 96374; 99285 ×2; 36415; 93005 ×2; 93306; 93351; 85379; 80061; 80053; 83735; 84484; 85025; 85610; 85730; 71046; 71275; G0378 ×2; J0360; Q9967

== ENCOUNTER → 2023-10-12 | Outpatient (CLI) | payer MEDICARE | END | disposition home or self-care (01) | LOC: LABPRL 14:30 | PROVIDERS: ATTEND Nurse Practitioner Family | DX: R35.0 Frequency of micturition (principal) | CPT/HCPCS: 87086 ==